=== PATIENT | female | born 1950 | race Caucasian/White ===

== ENCOUNTER 2022-01-12 10:41 | Outpatient (CLI) | payer OTHER, SELFPAY | END 2022-01-12 10:42 | disposition home or self-care (01) | PROVIDERS: PCP Family Medicine; Visit Provider Orthopaedic Surgery Sports Medicine | DX: Z01.818 Encounter for other preprocedural examination (principal) | CPT/HCPCS: 36415; 86850; 86900; 86901 ==

== ENCOUNTER 2022-01-14 11:49 | Day surgery (SDC) | payer OTHER, SELFPAY ==
[2022-01-14] VITALS (28 sets, daily range): BP systolic 119–156; BP diastolic 70–108; PULSE 48–71; RESP 11–18; TEMP 35.6–36.6; O2SAT 93–100; BMI 37.5
[2022-01-14] MEDS: MIDAZOLAM HCL 1 MG/ML inj IVP (11:50)
[2022-01-14] MEDS: fentaNYL 100 MCG/2 ML inj IVP (11:50)
[2022-01-14] MEDS: CELECOXIB 200 MG CAPSULE PO ×2 (12:14→20:52)
[2022-01-14] MEDS: ACETAMINOPHEN 500 MG TABLET 1000 MG PO ×2 (12:14→20:52)
[2022-01-14] MEDS: OXYCODONE (CR) 10 MG TAB.ER.12H PO (12:14)
[2022-01-14] MEDS: SODIUM CHLORIDE 0.9 % (FLUSH) 10 ML SYRINGE IVF (14:02)
[2022-01-14] MEDS: LACTATED RINGERS 1000 ML 1,000 ML 100 ML IV ×2 (14:02→15:56)
--- NOTE | 2022-01-14 14:37 | W.PM.NB ---
Nerve Block Nerve Block Time Seen by Provider: 14:37 Date Seen: 01/14/22 Type of block requested by surgeon for post-operative analgesia: KEVIN/LFCN Side: right Time out performed: Yes Verification of patient name: Yes Verification of date of : Yes Site marking: site marked Name of person performing procedure: Craig Continuous monitoring Was continuous monitoring of O2 sat, B/P, cardiac cath technician, recorded every 15 minutes?: Yes Procedure Checklist: sterile prep, needles and gloves Ultrasound guided. Images saved: Yes Medications given in 5ml increments after negative aspiration: Marcaine %: 0.5 mL: 30 Needle gauge: 20 Decadron (mg): 10 Precedex (mcg): 25 Patient tolerated procedure well: Yes Additional comments: Needle noted adjacent to nerve Block Charges Block Charge (with Pro Fee): Other Periph Nerve Block Use of Ultrasound Machine for Block: Yes- US Guidance/pain block
--- NOTE | 2022-01-14 14:45 | SUR.PREOP ---
TIME?OUT:?1430 PT/RN/MDA?VERIFICATION?OF?SURGICAL?SITE,?PROCEDURE,?AND?CONSENT OBTAINED?PRIOR?TO?INVASIVE?PROCEDURE. right hip
--- NOTE | 2022-01-14 14:53 | CRLHL7_ITS ---
For Patients: As a result of the Cures Act, medical imaging exams and procedure reports are released immediately into your electronic medical record. You may view this report before your referring provider. If you have questions, please contact your health care provider. Indication: Hip replacement surgery Technique: AP hip fluoroscopic image. Fluoroscopy time 47.2 seconds. Findings/Impression: Hardware from a right total hip arthroplasty is in satisfactory position. Dictated by Jair Martinez MD @ 01/15/2022 8:36:31 AM (Electronically Signed)
[2022-01-14] MEDS: CEFAZOLIN 2 GM INJ IVP (15:30)
--- NOTE | 2022-01-14 17:52 | P.ORPRC_ITS ---
Procedure Note Date of procedure: 01/14/22 Procedure: PREOPERATIVE DIAGNOSIS: 1. Right hip osteoarthritis, severe, primary POSTOPERATIVE DIAGNOSIS: 1. Right hip osteoarthritis, severe, primary PROCEDURE: 1. Right total hip arthroplasty-anterior approach 2. 53154 - intraoperative fluoroscopy up to 1 hour. SURGEON: Barrera Sellers MD. TACTICAL AIR DEFENSE CONTROLLER: Kwaku Blevins PA-C; ARTEM Kirkland - Of note, a skilled warehouse assistant was critical for this case to aid in patient positioning, tissue retraction, limb manipulation/positioning, and closure. ANESTHESIA: General endotracheal anesthetic EBL: 500 mL IMPLANTS: DePuy J&J uncemented total hip [place] cup size 48, hole eliminator, +0 neutral liner Corail stem, standard offset short neck, size 14 +5 mm ceramic 32mm head COMPLICATIONS: Proximal, posterior greater trochanteric intraoperative fracture fragment. Cerclage cables placed around the calcar to reinforce/support the femur. INDICATIONS: The patient is a pleasant 71-year-old female who has experienced severe right hip pain and difficulty bearing weight. Workup included x-rays which revealed severe osteoarthrosis in the hip. Given the deformity, the dysfunction, and the pain, as well as the failure of nonoperative management, recommendation was made for surgery. FINDINGS: Severe osteoarthrosis with full-thickness chondral loss femoral head and broadly to the acetabulum. Perimeter osteophytes around the femoral head/neck junction. Moderate effusion upon entering the joint. Significant synovitis. Intraoperatively, subtle posterior proximal greater trochanteric fracture was identified. It did not appear that the stem was unstable, but cerclage cables placed around the calcar to reinforce and support the bone. DESCRIPTION OF PROCEDURE: Following a thorough discussion of risks, benefits, and alternatives consent was obtained and the right hip was marked. The patient was brought to the operating room and placed supine on the operating table. Induction of anesthesia was undertaken. 2 g IV Ancef and 1 g tranexamic acid was administered within 1 hr of incision preoperatively. Proper time-out was performed identifying proper patient, site, procedure. The operative extremity was prepped and draped in the appropriate sterile fashion using ChloraPrep after the patient was positioned on the [place] table with head in neutral alignment and all bony prominences well padded. C-arm fluoroscopic imaging was utilized to confirm proper pelvis rotation and position, and to get true AP films of both the contralateral left, and the affected right hip. This is for comparison. A longitudinal incision was made starting approximately 1 cm distal to the ASIS, and 3-4 cm lateral. The incision was extended distally aiming toward the lateral border the patella. Sharp incision through skin and bovie cautery through the subcutaneous tissue allowed identification of the TFL fascia. This was sharply divided, and the fascia bluntly released from the muscle fibers as we dissected medial. Upon coming to the medial border, we were able to retract the TFL laterally, and penetrated the deeper fascia and identify the crossing circumflex vessels. These were ligated/cauterized. The rectus was elevated from the capsule, and retractors placed laterally and medially along the femoral neck to help with visualization of the capsule. We then performed an inverted T capsulotomy. The capsule was tagged for later repair. Retractors were placed inside the capsule. The femoral neck was visualized after releasing medially down to the lesser trochanter, along the saddle laterally, and up onto the acetabulum. The femoral neck cut was made in line with our preoperative templating. The head was removed in a single piece, and sized. We turned our attention to acetabular preparation. Initially, the labrum was resected from around the perimeter, the pulvinar was excised, allowing us to visualize the false wall. We started the reaming with a 43 mm reamer. This was medialized down to the true wall. We then enlarged our reamers sequentially up to one size less than the selected cup size. We trialed at the same size and found it to have an excellent fit. The selected cup was then opened, inserted, and impacted in line with the goal of 40? of abduction, and 20-25? of anteversion. This was confirmed on C-arm fluoroscopic imaging to be in the appropriate/goal position. Once the cup was placed we placed a hole eliminator and a liner consistent with preop planning. Attention was turned to the femoral preparation. The limb was extended, externally rotated, and adducted. The posteromedial capsule was released, as retractors were placed allowing excellent access to the proximal femur. Initially a box storage worker was followed by canal finder followed by various broaches. We broached sequentially up to the size noted above, found it to have excellent rotational control, and trialing various heads and necks, revealed that appropriate neck offset, and the above noted head size provided the greatest stability, and orthodox of length, and offset. C-arm fluoroscopic imaging confirmed position of the stem, as well as leg lengths, which were compared with the pre procedure all fluoroscopic images. Trial implants were removed, the real femoral stem inserted, as was the appropriate head. After reducing, the leg was placed through range of motion and stability was confirmed anterior, posterior, and lateral. Of note, during the calcar planing process, a portion of the posterior proximal greater trochanter fractured off. It was a separate fragment. It did not appear to compromise the integrity of the proximal femur or the stem stability. The trial stem was maintained and assessed and found to be stable. We reduced the hip and dislocated with trialing. We put in the real implants and again the implant felt stable. However, with the fracture fragment not able to be maintained (it had no soft tissue attachments), cerclage cables were utilized to help reinforce the proximal femur and support the calcar to ensure that there is no splitting of this that could not be appreciated grossly nor fluoroscopically. Thus, 2 separate cerclage super cables were placed 1 proximal and 1 distal to the greater trochanteric apex. Both went around the calcar just proximal to the lesser trochanter. Excellent security was achieved. Again the stem felt to be stable throughout. A 3 min Betadine soak was then performed, and thorough irrigation with normal saline followed. Closure of the capsule was performed with #1 PDS. Bleeding was confirmed to be controlled at this stage, and the TFL fascia was closed with #0 strata fix. Subcutaneous, and subcuticular closure was performed with 2-0 Vicryl and 4-0 Monocryl, respectively. Dressings were applied, and the patient was awoken from anesthesia and transferred the PACU in stable condition. A skilled warehouse assistant was critical for this case to aid in patient positioning, tissue retraction, acetabular and proximal femoral exposure, limb manipulation/positioning, dislocation/relocation, patient safety, and closure. PLAN: 1. Weight bear as tolerated operative extremity. 2. 23 hr perioperative antibiotics. 3. Ice. 4. PT/OT consults for ambulation assistance/mobility education. 5. Social work consult for discharge planning. 6. DVT prophylaxis with at SCDs, William Hose, and Xarelto x5 days followed by aspirin for a total of 1 month..
--- NOTE | 2022-01-14 17:57 | CRLHL7_ITS ---
For Patients: As a result of the Cures Act, medical imaging exams and procedure reports are released immediately into your electronic medical record. You may view this report before your referring provider. If you have questions, please contact your health care provider. Indication: POST OP VICKY Technique: AP pelvis and lateral view right hip Findings/Impression: Hardware from a right total hip arthroplasty is in satisfactory position. Bone alignment is normal. No sign of acute fracture. Postop changes are within normal limits. Dictated by Jair Martinez MD @ 01/15/2022 8:37:14 AM (Electronically Signed)
[2022-01-14] MEDS: fentaNYL 100 MCG/2 ML inj 50 MCG IVP ×2 (18:56→19:36)
--- NOTE | 2022-01-14 18:57 | W.ANESCHARGE ---
Anesthesia Charges Start Date/Time Anesthesia Start Date: 01/14/22 Anesthesia Start Time: 15:22 Stop Date/Time Anesthesia Stop Date: 01/14/22 Anesthesia Stop Time: 18:51 Summary Emergency: No
[2022-01-14] MEDS: HYDROmorphone 0.5 mg/0.5 ml inj IVP ×2 (19:13→20:53)
[2022-01-14] MEDS: LACTATED RINGERS 1000 ML 1,000 ML 75 ML IV (19:40)
[2022-01-14] MEDS: BENZOCAINE/MENTHOL 1 EACH LOZENGE MUCOUS MEM (20:43)
[2022-01-14] MEDS: SENNOSIDES 1 TAB TABLET 2 TAB PO (20:51)
--- NOTE | 2022-01-14 21:35 | P.IMCN_ITS ---
Date of Consult Patient: [facility] Patient Consult date: 01/14/22 Requesting Physician: Orthopedics (Michael) Primary Care Provider: Jair Long MD Consult Narrative Reason for consult: hypertension, hyperlipidemia Narrative: Monika Faustin is a 71 year old female who underwent elective right total hip arthroplasty today by Dr. Rodriguez. She is doing well post operatively. She felt a bit chilled, but is better now with JACOB hugger and feels comfortable and relaxed. Review of Systems Status of ROS: Reports: 6 or more systems reviewed and unremarkable except as noted in History and below [facility] Medical History (Updated 01/14/22 @ 22:27 by Ania Magana MD) History of thyroid nodule Hyperlipidemia Hypertension Hypothyroidism Obesity (BMI 30-39.9) Primary osteoarthritis of right hip (~2014) Surgical History (Updated 01/14/22 @ 21:43 by Ania Magana MD) History of D&C (2016) History of radioactive iodine thyroid ablation (2016) History of tonsillectomy (1963) History of tubal ligation (1990) S/P total right hip arthroplasty Family History (Updated 01/14/22 @ 21:53 by Ania Magana MD) Father Stroke Diabetes Breast cancer High blood pressure Mother Esophageal cancer Maternal Grandfather Coronary artery disease Social History Narrative: . 4 children. 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 Social EtOH. Full Code. Smoking Status: Never smoker Do you use any of these nicotine containing products: None Second hand tobacco smoke exposure: No How often do you have a drink containing alcohol: monthly or less Alcohol type: wine How many standard drinks containing alcohol do you have on a typical day: 1 or 2 How often do you have six or more drinks on one occasion: Never AUDIT-C Alcohol total score: 1 Non-prescribed substance use: denies use Caffeine: Yes (coffee, 2-3 cups/day) Are you now , , , , never or living with a partner: Social isolation score (0-1 are the most socially isolated patients): 1 Are you using contraception or practicing any form of control: No Meds Home Medications and Allergies Home Medications Medication Instructions Recorded Confirmed Type levothyroxine 88 mcg tablet 88 mcg PO DAILY 12/17/21 01/14/22 History losartan 100 1 tab PO DAILY 12/17/21 01/14/22 History mg-hydrochlorothiazide 12.5 mg tablet metoprolol succinate 50 mg 50 mg PO HS 12/31/21 01/14/22 History tablet,extended release 24 hr Home Medication Comments: amlodipine 5mg po daily. Allergies Allergy/AdvReac Type Severity Reaction Status Date / Time No Known Drug Allergies Allergy Verified 01/14/22 12:01 Exam Narrative: Exam Narrative: General: No acute distress. Awake alert oriented x3. Very pleasant. HEENT: Normocephalic atraumatic, pupils equally round. Oropharynx clear. Mucous membranes are moist. No cervical lymphadenopathy or thyromegaly. No JVD. Cardiovascular: Regular rate and rhythm. No murmurs, gallops, or rubs. Chest: No increased work of breathing. Clear to auscultation bilaterally. No crackles or wheezes. Abdomen: Bowel sounds present. Soft, nondistended, nontender. No hepatosplenomegaly or masses. Extremities: Right hip bandage is clean, dry, and intact. No edema, no c yanosis or clubbing. Skin: No jaundice, no pallor, no rashes. Const: Vital Signs, click to edit/add: Vital Signs - 24 hr 01/14/22 12:09 01/14/22 14:30 01/14/22 14:35 Temperature 97.9 F Pulse Rate 71 56 L 56 L Respiratory Rate 18 18 18 Blood Pressure 156/89 H 142/83 H 127/77 Pulse Oximetry 98 98 98 Oxygen Delivery Me thod Room Air Room Air Room Air Oxygen Flow Rate 01/14/22 14:40 01/14/22 14:45 01/14/22 14:50 Temperature Pulse Rate 52 L 54 L 52 L Respiratory Rate 18 18 18 Blood Pressure 122/80 122/80 128/76 Pulse Oximetry 98 100 100 Oxygen Delivery Me thod Nasal Cannula Nasal Cannula Nasal Cannula Oxygen Flow Rate 3 3 3 01/14/22 14:55 01/14/22 15:00 01/14/22 15:05 Temperature 97.9 F 97.9 F Pulse Rate 52 L 51 L 52 L Respiratory Rate 18 18 18 Blood Pressure 122/75 130/74 120/78 Pulse Oximetry 99 99 99 Oxygen Delivery Me thod Nasal Cannula Nasal Cannula Nasal Cannula Oxygen Flow Rate 3 3 3 01/14/22 15:11 01/14/22 18:55 01/14/22 19:00 Temperature 96.9 F L Pulse Rate 55 L 56 L 48 L Respiratory Rate 14 12 Blood Pressure 127/82 141/80 H 119/70 Pulse Oximetry 98 93 97 Oxygen Delivery Me thod Nasal Cannula Oxygen Flow Rate 3 01/14/22 19:05 01/14/22 19:10 01/14/22 19:15 Temperature Pulse Rate 54 L 53 L 53 L Respiratory Rate 16 12 11 L Blood Pressure 120/78 128/83 134/78 Pulse Oximetry 100 100 98 Oxygen Delivery Me thod Oxygen Flow Rate 01/14/22 19:20 01/14/22 19:25 01/14/22 19:30 Temperature 96.7 F L Pulse Rate 51 L 53 L 52 L Respiratory Rate 12 12 11 L Blood Pressure 136/77 140/89 H 121/108 H Pulse Oximetry 98 98 97 Oxygen Delivery Me thod Oxygen Flow Rate 01/14/22 19:35 01/14/22 19:40 Temperature 97.0 F L Pulse Rate 51 L 50 L Respiratory Rate 11 L 11 L Blood Pressure 145/82 H 138/76 Pulse Oximetry 97 98 Oxygen Delivery Me thod Oxygen Flow Rate Assessment and Plan Assessment and plan (1) S/P total right hip arthroplasty: Status: Acute Assessment and Plan: Cares per ortho. Pain well controlled. VTE prophylaxis with rivaroxaban for 5 d ays then aspirin 81 mg twice a day for 5 and half weeks. (2) Primary osteoarthritis of right hip: Problem comment: Had R greater troch bursa inj 04/19/20. See scanned [facility] note. Status: Chronic (3) Hypertension: Status: Chronic Assessment and Plan: I will hold her morning antihypertensives since blood pressure is often low postop day 1. If she is hypertensive tomorrow morning, these can be restarted at that time. I will continue metoprolol to start tomorrow night. (4) Hyperlipidemia: Problem comment: Diet controlled Status: Chronic (5) Hypothyroidism: Status: Chronic Assessment and Plan: Continue levothyroxine at home dosing. (6) Obesity (BMI 30-39.9): Problem comment: BMI 37.3 Status: Acute
[2022-01-14] MEDS: OXYCODONE 5 MG TABLET PO (22:21)
[2022-01-14] MEDS: CEFAZOLIN 2 GM in 0.9 % SODIUM CHLORIDE Mini-bag 100 ML IVPB (23:24)
[2022-01-14] MEDS: LORazepam 0.5 MG TABLET PO (23:33)
[2022-01-15] VITALS: BP 124/79; PULSE 55; RESP 16; TEMP 36.4; O2SAT 91
[2022-01-15] MEDS: OXYCODONE 5 MG TABLET PO ×5 (00:54→15:37)
[2022-01-15 01:00] VITALS: BP 137/88; PULSE 58; RESP 16; TEMP 36.4; O2SAT 88
[2022-01-15] MEDS: ACETAMINOPHEN 500 MG TABLET 1000 MG PO ×3 (01:48→14:16)
--- NOTE | 2022-01-15 06:33 | PC.NURSE ---
pt to floor at 1940. A x 1 with gb and walker. No c/o nausea. c/o pain in right hip, 6-02/16, see eMar for meds given. Pt requiring 1L O2 via NC when asleep to maintain sats >88%, when dozing off her O2 sats dropped to 87%. HR 50s-60s. BP 130s/80s. LS clear. Bowels active. Dressing to surgical site CDI, active ice on.
[2022-01-15] MEDS: LEVOTHYROXINE 88 MCG TABLET PO (06:41)
[2022-01-15 07:00] VITALS: BP 114/71; PULSE 63; RESP 18; TEMP 36.8; O2SAT 96
[2022-01-15 07:22] LABS: Hematocrit 34.9 % (33.0-51.0); Hemoglobin* 11.9 gm/dL (12.0-16.0); Immature Granulocytes Abs Auto 0.02 K/uL (0.00-0.30); Lymphocytes Percent Auto 5.2 % (20-44); Mean Corpuscular HGB Conc 34 gm/dL (32-36); Mean Corpuscular Hemoglobin 30 pg (26-34); Mean Corpuscular Volume 89 fL (80-100); Monocytes Percent Auto 4.4 % (0.0-11.0); Neutrophils Percent Auto 90.2 % (42.0-72.0); Platelet Count* 207 K/uL (140-440); RDW Coefficient of Variation % 13.4 % (11.5-15.5); Red Blood Count 3.93 m/uL (4.00-5.20); White Blood Count* 12.17 K/uL (4.50-11.00)
[2022-01-15 07:23] LABS: Slide Review Reflex No
[2022-01-15 07:25] LABS: Sodium* 130 mmol/L (135-149)
[2022-01-15 07:28] LABS: Blood Urea Nitrogen* 31 mg/dL (7-30); Creatinine* 1.2 mg/dL (0.5-1.5); Est. Creatinine Clearance* 36.09; Estimated Glomerular Filt Rate 49 ml/min
[2022-01-15] MEDS: CEFAZOLIN 2 GM in 0.9 % SODIUM CHLORIDE Mini-bag 100 ML IVPB ×2 (08:01→15:33)
[2022-01-15] MEDS: CELECOXIB 200 MG CAPSULE PO (08:54)
[2022-01-15] MEDS: SENNOSIDES 1 TAB TABLET 2 TAB PO (08:54)
[2022-01-15] MEDS: RIVAROXABAN 10 MG TABLET PO (08:55)
--- NOTE | 2022-01-15 10:22 | P.DS_ITS ---
DS: Providers Provider Date Seen: 01/15/22 Primary care physician: Jair Long MD Consults: 01/14/22 20:36 Consult to Occupational Therapy [CONS] Routine Comment: Reason(s) for OT Consult:: ADLs Prior to Discharge Any Restrictions?:: No Restrictions Comment: Consult to Physical Therapy [CONS] Routine Comment: Ambulate in the [place] today Reason(s) for PT Consult:: Evaluate and Treat Any Restrictions?:: No Restrictions Comment: Nursing Activity Consult to Physician [CONS] Routine Comment: Consulting Provider: Hospitalists Has provider been notified: No Consult to Telecommunications Operator [CONS] Routine Comment: Reason for Consult:: Discharge Planning Needs Attending Physician on discharge: Barrera Sellers MD Date of Discharge: 01/15/22 DS: Diagnosis Discharge Diagnosis (1) S/P total right hip arthroplasty: Status: Acute Problem details: right total hip arthroplasty-anterior approach (DOS 01/14/2022) (2) Primary osteoarthritis of right hip: Status: Resolved Problem details: Had R greater troch bursa inj 04/19/20. See scanned [facility] note. (3) Hypertension: Status: Chronic DS: Summary Hospital Course Hospital Course: 71-year-old female admitted for right total hip arthroplasty. Procedures performed by Dr. Sellers. Operation complicated by a fracture of the posterior greater trochanter managed with cerclage wires. Postoperatively she has done well. There have been no other postoperative complications. She reports feeling well today. Pain is well managed. She has been able to ambulate. The patient has a history of right hip osteoarthritis, primary, severe. After appropriate preoperative evaluation, the patient underwent right total hip arthroplasty. Postoperatively, the patient was given anticoagulation for deep vein thrombosis prophylaxis. The patient was progressed to Physical Therapy and was felt ready for discharge. Status at Discharge Functional status at discharge: uses cane/walker Overall status at discharge: patient is back to baseline Time Spent with Patient Time attestation: Total time spent providing and/or coordinating discharge services: Time spent: Less than 30 minutes Exam Narrative: Exam Narrative: She is alert and appears in no distress. Breathing is unlabored. Hip incision is clean and dry without drainage on the dressing. No bruising or redness. Distally she has intact pulses and sensation good strength in her feet and ankles bilaterally. No edema Const: Vital Signs, click to edit/add: Vital Signs - 24 hr 01/14/22 12:09 01/14/22 14:30 01/14/22 14:35 Temperature 97.9 F Pulse Rate 71 56 L 56 L Pulse Rate [Pulse Oximeter] Respiratory Rate 18 18 18 Blood Pressure 156/89 H 142/83 H 127/77 Blood Pressure [Le ft Radial Artery] Blood Pressure [Ri ght Arm] Pulse Oximetry 98 98 98 Oxygen Delivery Me thod Room Air Room Air Room Air Oxygen Flow Rate 01/14/22 14:40 01/14/22 14:45 01/14/22 14:50 Temperature Pulse Rate 52 L 54 L 52 L Pulse Rate [Pulse Oximeter] Respiratory Rate 18 18 18 Blood Pressure 122/80 122/80 128/76 Blood Pressure [Le ft Radial Artery] Blood Pressure [Ri ght Arm] Pulse Oximetry 98 100 100 Oxygen Delivery Me thod Nasal Cannula Nasal Cannula Nasal Cannula Oxygen Flow Rate 3 3 3 01/14/22 14:55 01/14/22 15:00 01/14/22 15:05 Temperature 97.9 F 97.9 F Pulse Rate 52 L 51 L 52 L Pulse Rate [Pulse Oximeter] Respiratory Rate 18 18 18 Blood Pressure 122/75 130/74 120/78 Blood Pressure [Le ft Radial Artery] Blood Pressure [Ri ght Arm] Pulse Oximetry 99 99 99 Oxygen Delivery Me thod Nasal Cannula Nasal Cannula Nasal Cannula Oxygen Flow Rate 3 3 3 01/14/22 15:11 01/14/22 18:55 01/14/22 19:00 Temperature 96.9 F L Pulse Rate 55 L 56 L 48 L Pulse Rate [Pulse Oximeter] Respiratory Rate 14 12 Blood Pressure 127/82 141/80 H 119/70 Blood Pressure [Le ft Radial Artery] Blood Pressure [Ri ght Arm] Pulse Oximetry 98 93 97 Oxygen Delivery Me thod Nasal Cannula Oxygen Flow Rate 3 01/14/22 19:05 01/14/22 19:10 01/14/22 19:15 Temperature Pulse Rate 54 L 53 L 53 L Pulse Rate [Pulse Oximeter] Respiratory Rate 16 12 11 L Blood Pressure 120/78 128/83 134/78 Blood Pressure [Le ft Radial Artery] Blood Pressure [Ri ght Arm] Pulse Oximetry 100 100 98 Oxygen Delivery Me thod Oxygen Flow Rate 01/14/22 19:20 01/14/22 19:25 01/14/22 19:30 Temperature 96.7 F L Pulse Rate 51 L 53 L 52 L Pulse Rate [Pulse Oximeter] Respiratory Rate 12 12 11 L Blood Pressure 136/77 140/89 H 121/108 H Blood Pressure [Le ft Radial Artery] Blood Pressure [Ri ght Arm] Pulse Oximetry 98 98 97 Oxygen Delivery Me thod Oxygen Flow Rate 01/14/22 19:35 01/14/22 19:40 01/14/22 19:40 Temperature 97.0 F L 96.1 F L Pulse Rate 51 L 50 L 53 L Pulse Rate [Pulse Oximeter] Respiratory Rate 11 L 11 L 12 Blood Pressure 145/82 H 138/76 Blood Pressure [Le ft Radial Artery] 148/86 H Blood Pressure [Ri ght Arm] Pulse Oximetry 97 98 Oxygen Delivery Me thod Room Air Oxygen Flow Rate 01/14/22 20:00 01/14/22 20:15 01/14/22 20:30 Temperature 96.3 F L 96.7 F L Pulse Rate Pulse Rate [Pulse Oximeter] Respiratory Rate 12 12 Blood Pressure Blood Pressure [Le ft Radial Artery] 152/83 H 150/89 H 153/79 H Blood Pressure [Ri ght Arm] Pulse Oximetry 98 98 96 Oxygen Delivery Me thod Room Air Room Air Room Air Oxygen Flow Rate 01/14/22 20:45 01/14/22 21:00 01/14/22 21:30 Temperature 96.7 F L 97 F L 97.4 F L Pulse Rate Pulse Rate [Pulse Oximeter] Respiratory Rate 14 14 12 Blood Pressure Blood Pressure [Le ft Radial Artery] 150/91 H 146/79 H 132/77 Blood Pressure [Ri ght Arm] Pulse Oximetry 96 96 96 Oxygen Delivery Me thod Room Air Room Air Room Air Oxygen Flow Rate 01/14/22 22:00 01/14/22 23:00 01/15/22 00:00 Temperature 97.4 F L 97.4 F L 97.5 F L Pulse Rate Pulse Rate [Pulse Oximeter] 60 58 L 55 L Respiratory Rate 14 16 16 Blood Pressure Blood Pressure [Le ft Radial Artery] 140/90 H 134/80 124/79 Blood Pressure [Ri ght Arm] Pulse Oximetry 99 99 91 Oxygen Delivery Me thod Room Air Room Air Room Air Oxygen Flow Rate 01/15/22 01:00 01/15/22 07:00 01/15/22 07:00 Temperature 97.5 F L 98.2 F Pulse Rate Pulse Rate [Pulse Oximeter] 58 L 63 Respiratory Rate 16 18 18 Blood Pressure Blood Pressure [Le ft Radial Artery] 137/88 Blood Pressure [Ri ght Arm] 114/71 Pulse Oximetry 88 96 Oxygen Delivery Me thod Room Air Room Air Oxygen Flow Rate Documenting provider has reviewed patient's vital signs: yes DS: Data Data Completed and Pending Labs on day of discharge: Labs from last 24 hours 01/15/22 01/15/22 06:37 06:37 WBC 12.17 H RBC 3.93 L Hgb 11.9 L Hct 34.9 MCV 89 MCH 30 MCHC 34 RDW Coeff of Tracy 13.4 Plt Count 207 Neut % (Auto) 90.2 H Lymph % (Auto) 5.2 L [place] % (Auto) 4.4 Eos % (Auto) 0.0 Baso % (Auto) 0.0 Neut # (Auto) 11.00 H Lymph # (Auto) 0.60 L [place] # (Auto) 0.50 Eos # (Auto) 0.00 Baso # (Auto) 0.00 Abs Immat Gran (auto) 0.02 Sodium 130 L Potassium 5.0 BUN 31 H Creatinine 1.2 Estimated Creat Clear 36.09 Estimated GFR 49 Discharge Plan Discharge Disposition: Home, Self-Care Discharging Surgeon: Barrera Sellers Follow-Up Appointment: Pt to follow up with PA in 1 week as scheduled and surgeon in 6 weeks Prescriptions: Continued levothyroxine 88 mcg tablet 88 mcg PO DAILY losartan-hydrochlorothiazide 100-12.5 mg tablet 1 tab PO DAILY amlodipine 5 mg tablet 5 mg PO QDAY Qty: 30 2RF Discontinued celecoxib 200 mg capsule 200 mg PO BID oxycodone 5 mg tablet 5 mg PO Q6H PRN (Reason: pain) Qty: 28 0RF Activity Level: Activity as Tolerated, Weight Bearing as Tolerated, Use Cane and Use Walker Activity Detail: Wound: ?Do not remove original dressing; we will remove this at first postop visit in 1 week. Only remove dressing if integrity is in question. ?No immersing wound in water; showering okay; light scrub with your hand and body soap, rinse, dab dry ?Sutures are under the skin, will dissolve; allow surgical glue to come off naturally; do not scrub the wound or apply ointments/lotions ?Call our office with any redness that streaks, excessive drainage from the wound, or wound gapping. Ice/Elevate: ?Ice as needed for swelling and discomfort (cryocuff or ice pack); elevate frequently above the heart CAITIE socks: ?Wear for 1 month, remove for 1 hour 3 times per day ?These are frustrating to take on/off, but are important for blood clot prevention for 1 month after surgery Blood Clot Prevention (DVT): ?Medication: Rivaroxaban, then transition to aspirin Driving: ?Do not drive while taking narcotic pain medication ?Anticipate 4-6 weeks no driving if operative leg is driving leg Dental: ?No elective dental work for 6 months post-op. If there is an urgent/emergent dental need, contact our office for an antibiotic prescription. Smoking/Alcohol: ?Do not smoke; do no drink alcohol especially when taking postoperative oral narcotic medication Seek Care from you Primary Care Provider if you experience the following issues in the postoperative phase and beyond: ?Bacterial infections such as: pneumonia, bacterial skin infection (cellulitis), UTI, high fever, chills unrelated to the operative body part - call your primary care physician urgently for treatment in hopes to protect your health and the metal implant. Referrals: ?PT, OT per patient preference - evaluate treat total right hip arthroplasty protocol (the training, ROM, ADLs, knee-high Caitie socks) Follow up: ?Ortho surgeon follow-up in 6 weeks; repeat radiographs AP pelvis, cross-table lateral right hip ?PA-C visit in 1 week *If there are any acute concerns regarding your surgery, please call our orthopedic clinic ([phone]) Discharge Diet: Regular Patient Instructions: Acetaminophen (By mouth), Aspirin (By mouth) (Otis Extra Strength, Otis Aspirin Children's,..., Oxycodone, Rapid Release (By mouth) ( ETH-Oxydose, Oxy IR,..., Rivaroxaban (By mouth) (Xarelto, Xarelto Starter Pack), Senna (By mouth) (Sen, Senna-lax), Anterior Hip Replacement (DC) Forms: Work/Release Restrictions Follow-up: Jair Long MD [Primary Care Provider] - Kwaku Blevins PA-C [Physician Hogshead Wrecker] - 01/24/22 8:30 am (Schedule [address] Sellers at this visit with Kwaku.) Discharge Orders: Discharge Order (Routine); Ordered 01/15/22 Ordered By: Santa Guthrie
[2022-01-15 11:00] VITALS: BP 113/66; PULSE 65; RESP 16; TEMP 36.8; O2SAT 96
--- NOTE | 2022-01-15 11:01 | PC.SOCIAL ---
Met with pt. and spouse to discuss discharge plans. Pt. plans to discharge home with spouse support and has everything she needs on one level except 3 steps to get into the home. Pt. is aware she can contact social insurance specialist if she needs any additional resources for discharge.
[2022-01-15 15:00] VITALS: BP 131/73; PULSE 67; RESP 16; TEMP 36.6; O2SAT 97
--- NOTE | 2022-01-15 17:53 | PC.NURSE ---
End of Shift: Patient pleasant and cooperative. Patient vitally stable, lungs clear, BS WNL(passing gas), IV's removed, catheter intact. Patient rating pain at most 8/10. Scheduled tylenol given x2 and 10 mg of oxy given x3. Patient ambulating 1 assist, walker, gb. Patient did report feeling lowsy after her therapies, patient reported it is due to the pain, no pain medications. Patient tolerating regular diet and urinating. Patient signed belongings sheet and discharge form. Patient had no further questions regarding discharge information. Patient left the floor at 1742 by wheelchair, accompanied by her who carried her belongings.
--- NOTE | 2022-01-15 19:31 | PM.ORPN ---
Subjective Subjective Date Seen: 01/15/22 Principal diagnosis: Status postop day 1 right total hip arthroplasty - anterior approach Interval history: Patient reports doing well. No acute events over night. Pain managed with scheduled /PRN medications and ice. DVT prophylaxis rivaroxaban, bilateral knee high William stockings, and SCDs. Denies fevers, chills, aches, N/V, CP, SOB/DUBOSE, tachycardia, or lightheadedness. She arrived late to the floor yesterday it will not received her last dose of IV antibiotics until this afternoon. Ortho Exam Narrative Exam Narrative: -Patient appears comfortable in bed; no apparent acute distress -Alert and oriented times 3 -Operative hip swollen; soft tissues supple; no obvious erythema. Ecchymosis minimal. Warmth appropriate -Surgical dressing clean, dry, intact; no obvious drainage, no erythematous streaking peripheral to the bandage -Bilateral calves soft and supple; no significant swelling, edema, tenderness, erythema, discoloration, warmth, or palpable cords -2+ DP/PT pulses, intact dermatomes and myotomes distally (5/5 strength). Mild numbness about the lateral femoral cutaneous nerve distribution. Const Vital Signs, click to edit/add: Vital Signs - 24 hr 01/14/22 19:35 01/14/22 19:40 01/14/22 19:40 Temperature 97.0 F L 96.1 F L Pulse Rate 51 L 50 L 53 L Pulse Rate [Pulse Oximeter] Respiratory Rate 11 L 11 L 12 Blood Pressure 145/82 H 138/76 Blood Pressure [Left Radial Artery] 148/86 H Blood Pressure [Right Arm] Pulse Oximetry 97 98 Oxygen Delivery Method Room Air 01/14/22 20:00 01/14/22 20:15 01/14/22 20:30 Temperature 96.3 F L 96.7 F L Pulse Rate Pulse Rate [Pulse Oximeter] Respiratory Rate 12 12 Blood Pressure Blood Pressure [Left Radial Artery] 152/83 H 150/89 H 153/79 H Blood Pressure [Right Arm] Pulse Oximetry 98 98 96 Oxygen Delivery Method Room Air Room Air Room Air 01/14/22 20:45 01/14/22 21:00 01/14/22 21:30 Temperature 96.7 F L 97 F L 97.4 F L Pulse Rate Pulse Rate [Pulse Oximeter] Respiratory Rate 14 14 12 Blood Pressure Blood Pressure [Left Radial Artery] 150/91 H 146/79 H 132/77 Blood Pressure [Right Arm] Pulse Oximetry 96 96 96 Oxygen Delivery Method Room Air Room Air Room Air 01/14/22 22:00 01/14/22 23:00 01/15/22 00:00 Temperature 97.4 F L 97.4 F L 97.5 F L Pulse Rate Pulse Rate [Pulse Oximeter] 60 58 L 55 L Respiratory Rate 14 16 16 Blood Pressure Blood Pressure [Left Radial Artery] 140/90 H 134/80 124/79 Blood Pressure [Right Arm] Pulse Oximetry 99 99 91 Oxygen Delivery Method Room Air Room Air Room Air 01/15/22 01:00 01/15/22 07:00 01/15/22 07:00 Temperature 97.5 F L 98.2 F Pulse Rate Pulse Rate [Pulse Oximeter] 58 L 63 Respiratory Rate 16 18 18 Blood Pressure Blood Pressure [Left Radial Artery] 137/88 Blood Pressure [Right Arm] 114/71 Pulse Oximetry 88 96 Oxygen Delivery Method Room Air Room Air 01/15/22 11:00 01/15/22 15:00 01/15/22 15:00 Temperature 98.3 F 98 F Pulse Rate Pulse Rate [Pulse Oximeter] 65 67 67 Respiratory Rate 16 16 16 Blood Pressure Blood Pressure [Left Radial Artery] Blood Pressure [Right Arm] 113/66 131/73 Pulse Oximetry 96 97 Oxygen Delivery Method Room Air Room Air Assessment and Plan Assessment and plan (1) S/P total right hip arthroplasty: Problem details: POD 1 right total hip arthroplasty - anterior approach Status: Acute (2) Primary osteoarthritis of right hip: Problem details: Had R greater troch bursa inj 04/19/20. See scanned [facility] note. Status: Chronic (3) Hypertension: Status: Chronic Plan - Complete 23 hour perioperative antibiotics. - PT/OT consult for education and assistance. - Social work consult for discharge planning - Prescribed analgesics as needed - DVT prophylaxis: Rivaroxaban, bilateral knee high William Hose stockings and SCDs - Anticipation is for discharge to home with family today 01/15/2022 if the patient remains medically stable, pain is controlled, and they are safe with mobilization. They will discharge later this afternoon in order to complete postoperative IV antibiotics.
--- NOTE | 2022-01-15 19:33 | PM.DS1 ---
DS: Providers Provider Date Seen: 01/15/22 Date of admission: Med/surg recovery 01/14/2022 Primary care physician: Jair Long MD Consults: 01/14/22 20:36 Consult to Occupational Therapy [CONS] Routine Comment: Reason(s) for OT Consult:: ADLs Prior to Discharge Any Restrictions?:: No Restrictions Comment: Consult to Physical Therapy [CONS] Routine Comment: Ambulate in the [place] today Reason(s) for PT Consult:: Evaluate and Treat Any Restrictions?:: No Restrictions Comment: Nursing Activity Consult to Physician [CONS] Routine Comment: Consulting Provider: Hospitalists Has provider been notified: No Consult to Condenser Cleaner [CONS] Routine Comment: Reason for Consult:: Discharge Planning Needs Attending Physician on discharge: Barrera Sellers MD Date of Discharge: 01/15/22 DS: Diagnosis Discharge Diagnosis (1) S/P total right hip arthroplasty: Status: Acute Problem details: POD 1 right total hip arthroplasty - anterior approach DS: Summary Hospital Course Hospital Course: 71-year-old female admitted for right total hip arthroplasty. Procedures performed by Dr. Sellers. Operation complicated by a fracture of the posterior greater trochanter managed with cerclage wires. Postoperatively she has done well. There have been no other postoperative complications. She reports feeling well today. Pain is well managed. She has been able to ambulate. The patient has a history of right hip osteoarthritis, primary, severe. After appropriate preoperative evaluation, the patient underwent right total hip arthroplasty. Postoperatively, the patient was given anticoagulation for deep vein thrombosis prophylaxis. The patient was progressed to Physical Therapy and was felt ready for discharge. Time Spent with Patient Time attestation: Total time spent providing and/or coordinating discharge services: Exam Const: Vital Signs, click to edit/add: Vital Signs - 24 hr 01/14/22 19:35 01/14/22 19:40 01/14/22 19:40 Temperature 97.0 F L 96.1 F L Pulse Rate 51 L 50 L 53 L Pulse Rate [Pulse Oximeter] Respiratory Rate 11 L 11 L 12 Blood Pressure 145/82 H 138/76 Blood Pressure [Le ft Radial Artery] 148/86 H Blood Pressure [Ri ght Arm] Pulse Oximetry 97 98 Oxygen Delivery Me thod Room Air 01/14/22 20:00 01/14/22 20:15 01/14/22 20:30 Temperature 96.3 F L 96.7 F L Pulse Rate Pulse Rate [Pulse Oximeter] Respiratory Rate 12 12 Blood Pressure Blood Pressure [Le ft Radial Artery] 152/83 H 150/89 H 153/79 H Blood Pressure [Ri ght Arm] Pulse Oximetry 98 98 96 Oxygen Delivery Me thod Room Air Room Air Room Air 01/14/22 20:45 01/14/22 21:00 01/14/22 21:30 Temperature 96.7 F L 97 F L 97.4 F L Pulse Rate Pulse Rate [Pulse Oximeter] Respiratory Rate 14 14 12 Blood Pressure Blood Pressure [Le ft Radial Artery] 150/91 H 146/79 H 132/77 Blood Pressure [Ri ght Arm] Pulse Oximetry 96 96 96 Oxygen Delivery Me thod Room Air Room Air Room Air 01/14/22 22:00 01/14/22 23:00 01/15/22 00:00 Temperature 97.4 F L 97.4 F L 97.5 F L Pulse Rate Pulse Rate [Pulse Oximeter] 60 58 L 55 L Respiratory Rate 14 16 16 Blood Pressure Blood Pressure [Le ft Radial Artery] 140/90 H 134/80 124/79 Blood Pressure [Ri ght Arm] Pulse Oximetry 99 99 91 Oxygen Delivery Me thod Room Air Room Air Room Air 01/15/22 01:00 01/15/22 07:00 01/15/22 07:00 Temperature 97.5 F L 98.2 F Pulse Rate Pulse Rate [Pulse Oximeter] 58 L 63 Respiratory Rate 16 18 18 Blood Pressure Blood Pressure [Le ft Radial Artery] 137/88 Blood Pressure [Ri ght Arm] 114/71 Pulse Oximetry 88 96 Oxygen Delivery Me thod Room Air Room Air 01/15/22 11:00 01/15/22 15:00 01/15/22 15:00 Temperature 98.3 F 98 F Pulse Rate Pulse Rate [Pulse Oximeter] 65 67 67 Respiratory Rate 16 16 16 Blood Pressure Blood Pressure [Le ft Radial Artery] Blood Pressure [Ri ght Arm] 113/66 131/73 Pulse Oximetry 96 97 Oxygen Delivery Me thod Room Air Room Air DS: Data Data Completed and Pending Labs on day of discharge: Labs from last 24 hours 01/15/22 01/15/22 06:37 06:37 WBC 12.17 H RBC 3.93 L Hgb 11.9 L Hct 34.9 MCV 89 MCH 30 MCHC 34 RDW Coeff of [place] 13.4 Plt Count 207 Neut % (Auto) 90.2 H Lymph % (Auto) 5.2 L [place] % (Auto) 4.4 Eos % (Auto) 0.0 Baso % (Auto) 0.0 Neut # (Auto) 11.00 H Lymph # (Auto) 0.60 L [place] # (Auto) 0.50 Eos # (Auto) 0.00 Baso # (Auto) 0.00 Abs Immat Gran (auto) 0.02 Sodium 130 L Potassium 5.0 BUN 31 H Creatinine 1.2 Estimated Creat Clear 36.09 Estimated GFR 49 Discharge Plan Discharge Disposition: Home, Self-Care Discharging Surgeon: Barrera Sellers Follow-Up Appointment: Pt to follow up with PA in 1 week as scheduled and surgeon in 6 weeks Prescriptions: New aspirin 81 mg tablet,delayed release (DR/EC) 81 mg PO BID Qty: 50 0RF Rx Instructions: Medication to help prevent blood clots postoperatively; take TWICE daily. acetaminophen 500 mg capsule 500 - 1,000 mg PO Q6H MDD 4000mg PRNQty: 100 0RF oxycodone 5 mg tablet 2.5 - 5 mg PO Q4-6H MDD 6 PRN (Reason: pain) Qty: 42 0RF Rx Instructions: Take as needed for postop pain: 2.5mg mild pain, 5mg moderate-severe pain; wean as tolerated. sennosides-docusate sodium [Senna-S] 8.6-50 mg tablet 1 - 2 tab-cap PO BID PRN (Reason: constipation) Qty: 60 0RF Rx Instructions: Hold medication if experiencing loose stools. rivaroxaban 10 mg tablet 10 mg PO DAILY Qty: 4 0RF Rx Instructions: Medication for deep vein clot prevention post surgery. Complete this medication before starting Aspirin. Continued levothyroxine 88 mcg tablet 88 mcg PO DAILY losartan-hydrochlorothiazide 100-12.5 mg tablet 1 tab PO DAILY metoprolol succinate 50 mg tablet extended release 24 hr 50 mg PO HS amlodipine 5 mg tablet 5 mg PO QDAY Qty: 30 2RF Discontinued celecoxib 200 mg capsule 200 mg PO BID oxycodone 5 mg tablet 5 mg PO Q6H PRN (Reason: pain) Qty: 28 0RF Activity Level: Activity as Tolerated, Weight Bearing as Tolerated, Use Cane and Use Walker Activity Detail: Wound: ?Do not remove original dressing; we will remove this at first postop visit in 1 week. Only remove dressing if integrity is in question. ?No immersing wound in water; showering okay; light scrub with your hand and body soap, rinse, dab dry ?Sutures are under the skin, will dissolve; allow surgical glue to come off naturally; do not scrub the wound or apply ointments/lotions ?Call our office with any redness that streaks, excessive drainage from the wound, or wound gapping. Ice/Elevate: ?Ice as needed for swelling and discomfort (cryocuff or ice pack); elevate frequently above the heart CAITIE socks: ?Wear for 1 month, remove for 1 hour 3 times per day ?These are frustrating to take on/off, but are important for blood clot prevention for 1 month after surgery Blood Clot Prevention (DVT): ?Medication: Rivaroxaban, then transition to aspirin Driving: ?Do not drive while taking narcotic pain medication ?Anticipate 4-6 weeks no driving if operative leg is driving leg Dental: ?No elective dental work for 6 months post-op. If there is an urgent/emergent dental need, contact our office for an antibiotic prescription. Smoking/Alcohol: ?Do not smoke; do no drink alcohol especially when taking postoperative oral narcotic medication Seek Care from you Primary Care Provider if you experience the following issues in the postoperative phase and beyond: ?Bacterial infections such as: pneumonia, bacterial skin infection (cellulitis), UTI, high fever, chills unrelated to the operative body part - call your primary care physician urgently for treatment in hopes to protect your health and the metal implant. Referrals: ?PT, OT per patient preference - evaluate treat total right hip arthroplasty protocol (the training, ROM, ADLs, knee-high Caitie socks) Follow up: ?Ortho surgeon follow-up in 6 weeks; repeat radiographs AP pelvis, cross-table lateral right hip ?PA-C visit in 1 week *If there are any acute concerns regarding your surgery, please call our orthopedic clinic ([phone]) Discharge Diet: Regular Patient Instructions: Acetaminophen (By mouth), Aspirin (By mouth) (Otis Extra Strength, Otis Aspirin Children's,..., Oxycodone, Rapid Release (By mouth) (ETH-Oxydose, Oxy IR,..., Rivaroxaban (By mouth) (Xarelto, Xarelto Starter Pack), Senna (By mouth) (Sen, Senna-lax), Anterior Hip Replacement (DC) Forms: Work/Release Restrictions Follow-up: Jair Long MD [Primary Care Provider] - Kwaku Blevins PA-C [Physician Button Bradder] - 01/24/22 8:30 am (Schedule [address] Sellers at this visit with Kwaku.) Discharge Orders: Discharge Order (Routine); Ordered 01/15/22 Ordered By: Santa Guthrie
== END 2022-01-15 17:42 | disposition home or self-care (01) ==
LOC: OR 20:12 → MEDSURG 20:19
PROVIDERS: PCP Family Medicine; Visit Provider Orthopaedic Surgery Sports Medicine
PROC: (CPT 27130; principal; 2022-01-14 14:00)
DX: M16.11 Unilateral primary osteoarthritis, right hip (principal); M65.851 Other synovitis and tenosynovitis, right thigh; M96.661 Fracture of femur following insertion of orthopedic implant, joint prosthesis, or bone plate, right leg; I10 Essential (primary) hypertension; E78.5 Hyperlipidemia, unspecified; E03.9 Hypothyroidism, unspecified; E66.9 Obesity, unspecified; Z68.37 Body mass index [BMI] 37.0-37.9, adult
CPT/HCPCS: 27130; 01214; 36415; 51702; 64450; 73501; 76942; 82565; 84132; 84295; 84520; 85025; 97110; 97116; 97161; 97165; 97530; 97535; A9270; C1776; J0330; J0690; J1100; J1170; J2250; J2370; J2405; J2704; J3010; J3490; J7120

== ENCOUNTER 2022-01-20 09:45 | Emergency (ER) | payer OTHER, SELFPAY ==
[2022-01-20 09:56] VITALS: BP 178/93; PULSE 66; RESP 18; TEMP 36.6; O2SAT 94; BMI 35.9
[2022-01-20 10:30] VITALS: BP 155/89; RESP 20; O2SAT 98
--- NOTE | 2022-01-20 11:02 | CRLHL7_ITS ---
For Patients: As a result of the Cures Act, medical imaging exams and procedure reports are released immediately into your electronic medical record. You may view this report before your referring provider. If you have questions, please contact your health care provider. Indication: Postsurgical pain Technique: Two views right femur Comparison: 01/14/2022 Findings: Intact right hip replacement hardware. No fracture. Impression: No acute or significant findings. Dictated by Jair Martinez MD @ 01/20/2022 11:58:31 AM (Electronically Signed)
--- NOTE | 2022-01-20 11:02 | CRLHL7_ITS ---
For Patients: As a result of the Century Cures Act, medical imaging exams and procedure reports are released immediately into your electronic medical record. You may view this report before your referring provider. If you have questions, please contact your health care provider. Indication: Postsurgical pain Technique: AP hips and pelvis, supine Comparison: 01/14/2022 Findings: Right hip replacement hardware intact. No fracture. Tubal ligation devices. Impression: No acute or significant findings. Dictated by Jair Martinez MD @ 01/20/2022 11:57:46 AM (Electronically Signed)
[2022-01-20 13:10] VITALS: BP 150/107; PULSE 68; RESP 20; O2SAT 98
[2022-01-20] MEDS: OXYCODONE 5 MG TABLET 10 MG PO (13:13)
--- NOTE | 2022-01-20 16:41 | ED_ITS ---
HPI - Extremity Injury (Lower) General Time Seen by Provider: 10:30 Date Seen: 01/20/22 Chief Complaint: Extremity Pain/Injury, Lower Stated Complaint: Post surgical pain, R hip Time Seen by Provider: 01/20/22 10:49 Source: patient, family, RN notes reviewed and old records reviewed Mode of arrival: EMS Limitations: no limitations History of Present Illness HPI Narrative: Monika is a very pleasant 71-year-old female who is postop day 6 from a right hip replacement secondary to osteoarthritis and not trauma who comes to the emergency room via EMS for increasing right hip pain. Patient was noted to have planned surgery on the right hip on January 14. They were told that during the surgery the femur ?broke? and they had to put some mesh in place. Patient was noted to have stayed overnight and was discharged on January 15 per her request. They note that she was experiencing spasm in her right anterior thigh. On Friday01/16/2022 they contacted Orthopedics and at that time hydroxyzine was added to her medications which included oxycodone and she was noted to have improvement of her discomfort and resolution of the spasms. On Friday01/18/2022 Monika is was helping her get into bed and she was a little bit slower than his movements and she had a sudden ad duction movement of her right hip. She felt like something gave way and since that time had increased pain. They were able to treat it with oxycodone and hydroxyzine and she did well until early this morning when she woke up and describes pain 15/10. She had no numbness or tingling. She was given oxycodone 10 mg this morning. EMS was called as she was unable to leave the house and she received fentanyl. At this time she notes that she is feeling better. Patient has not had any further trauma at home. She has been using her incentive spirometer. Her daughter who is present describes a fever up to 101 on Friday01/16/2022 that resolved when she took her pain medications. She has had low-grade fevers up to 100.2 since that time only at night and only in association with significant pain. Fevers resolve once she has received pain relief. This morning she started on Celebrex. She had not taken Celebrex prior to this morning. She has not noticed any drainage from her incision although it is covered with a bandage. She has not had any vomiting. Daughter is trying to get her to eat healthy and trying to get her to avoid sugar latent foods. Pain this morning was somewhat different and that it wrapped around to patient's hip. Patient does not have pain extending past the knee. No numbness or tingling. Related Data Home Medications Medication Instructions Recorded Confirmed levothyroxine 88 mcg tablet 88 mcg PO DAILY 12/17/21 01/14/22 losartan 100 1 tab PO DAILY 12/17/21 01/14/22 mg-hydrochlorothiazide 12.5 mg tablet metoprolol succinate 50 mg 50 mg PO HS 12/31/21 01/14/22 tablet,extended release 24 hr Previous Rx's Medication Instructions Recorded amlodipine 5 mg tablet 5 mg PO QDAY #30 tabs 12/31/21 acetaminophen 500 mg capsule 500 - 1,000 mg PO Q6H PRN #100 caps 01/14/22 aspirin 81 mg tablet,delayed 81 mg PO BID #50 tabs 01/14/22 release oxycodone 5 mg tablet 2.5 - 5 mg PO Q4-6H PRN pain #42 01/14/22 tabs rivaroxaban 10 mg tablet 10 mg PO DAILY #4 tabs 01/14/22 sennosides 8.6 mg-docusate sodium 1 - 2 tab-cap PO BID PRN 01/14/22 50 mg tablet (Senna-S) constipation #60 tabs hydroxyzine pamoate 25 mg capsule 25 - 50 mg PO Q6H PRN pain #60 caps 01/16/22 (Vistaril) Allergies Allergy/AdvReac Type Severity Reaction Status Date / Time No Known Drug Allergies Allergy Verified 01/20/22 09:56 Review of Systems Const: Reports: fever (For as noted in HPI); Denies: chills or fatigue Eyes: Denies: change in vision ENMT: Denies: throat pain or throat swelling Cardio: Denies: chest pain, palpitations or shortness of breath with exertion Resp: Reports: cough (Patient denies but daughter states on Tuesday 01/16. Now resolved); Denies: shortness of breath GI: Denies: abdominal pain, nausea, vomiting, diarrhea or constipation : Reports: urinary urgency (Chronic); Denies: painful urination Musculo: Denies: back pain Neuro: Denies: headache Endo: Denies: fatigue Allergy/Immuno: Denies: throat swelling PFSH PFS Medical History (Updated 01/20/22 @ 13:17 by Marsha Gonsalves MD) History of thyroid nodule Hyperlipidemia Hypertension Hypothyroidism Obesity (BMI 30-39.9) Primary osteoarthritis of right hip (~2014) Surgical History (Updated 01/20/22 @ 13:17 by Marsha Gonsalves MD) History of D&C (2016) History of radioactive iodine thyroid ablation (2016) History of tonsillectomy (1963) History of tubal ligation (1990) S/P total right hip arthroplasty Family History (Updated 01/14/22 @ 21:53 by Ania Magana MD) Father Stroke Diabetes Breast cancer High blood pressure Mother Esophageal cancer Maternal Grandfather Coronary artery disease Social History Narrative: . 4 children. 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 Social EtOH. Full Code. Smoking Status: Never smoker Do you use any of these nicotine containing products: None Second hand tobacco smoke exposure: No How often do you have a drink containing alcohol: 2-3 times a week Alcohol type: wine How many standard drinks containing alcohol do you have on a typical day: 1 or 2 How often do you have six or more drinks on one occasion: Never AUDIT-C Alcohol total score: 3 Non-prescribed substance use: denies use Caffeine: Yes (coffee, 2-3 cups/day) Are you now , , , , never or living with a partner: Social isolation score (0-1 are the most socially isolated patients): 1 Are you using contraception or practicing any form of control: No Exam Const: Vital Signs, click to edit/add: Vital Signs - 24 hr 01/20/22 09:56 01/20/22 10:30 01/20/22 13:10 Temperature 97.9 F Pulse Rate [Pulse Oximeter] 66 68 Respiratory Rate 18 20 20 Blood Pressure [Le ft Upper Arm] 178/93 H 155/89 H 150/107 H Pulse Oximetry 94 98 98 Oxygen Delivery Me thod Room Air Documenting provider has reviewed patient's vital signs: yes Common normals: no apparent distress, oriented x3, no limitations, healthy appearing and alert General appearance: cooperative, comfortable and well [facility] Nutritional appearance: overweight HENMT: Common normals: normocephalic Head and scalp: normocephalic Eye: General eye: normal appearance of both eyes Neck & C-Spine: Common normals: full ROM Resp: Common normals: normal respiratory effort and clear to auscultation bilaterally Effort & inspection: able to speak in complete sentences Auscultation: clear to auscultation bilaterally Cardio: Common normals: regular rate and regular rhythm Rate: regular rate Rhythm: regular rhythm GI: Common normals: soft to palpation Palpation: soft Extremity: Other: Right hip shows a surgical wound that is clean dry and intact. There are some areas of ecchymosis but there is no significant drainage erythema and it does not warm to the touch. Bilateral lower extremity edema right greater than left. Compression stockings are in place. Distally sensation and motor is intact. Straight leg raise and gentle movement of the hip does not create increased pain. Neuro: Common normals: oriented x3 Sensorium/orientation: alert Psych: Common normals: mental status grossly normal Appearance: well ket Course Course Hospital Course: At this time patient describes a moment on Friday evening 01/16/2022 at which she had a sudden ad duction move of her right hip. Since that time she had been using oxycodone and Vistaril with some success. She did have activity yesterday which was slightly increased and awoke this morning with greatly increased right hip pain. We will obtain x-rays of the right hip. Patient did have fever up to 101 on Friday but since that time no significant fever and she has had resolution of those symptoms once her pain was under control. I do not think we are looking at a septic picture here but will continue to monitor in the ED emergency room. Her lungs are completely clear at this time. Reevaluation(s) Reevaluation #1: Patient is noted to continue to feel well without a need for further medication. She is afebrile x2 in the emergency room and her pulse is normal. X-rays do not appear to be markedly changed from post surgical films. Consultations Consultation #1: Had the pleasure of speaking to yasmine Pratt for Orthopedics. She was able to visualize the x-rays and at this time reassurance that the ?broken femur? was not an uncommon thing to happen during this type of surgery. Family seemed very relieved with that. Recommend follow-up with orthopedics this week. Vital Signs Vital signs: Initial Vital Signs Temperature 97.9 F 01/20/22 09:56 Temperature Source Temporal Artery Scan 01/20/22 09:56 Pulse Rate 66 01/20/22 09:56 Pulse Rhythm 01/20/22 09:56 Respiratory Rate 18 01/20/22 09:56 Blood Pressure 178/93 H 01/20/22 09:56 Blood Pressure Mean 121 01/20/22 09:56 Blood Pressure Position Supine 01/20/22 09:56 Pulse Oximetry 94 01/20/22 09:56 Oxygen Delivery Method 01/20/22 09:56 Vital Signs Temperature 97.9 F 01/20/22 09:56 Pulse Rate 66 01/20/22 09:56 Respiratory Rate 18 01/20/22 09:56 Blood Pressure 178/93 H 01/20/22 09:56 Pulse Oximetry 94 01/20/22 09:56 Oxygen Delivery Method 01/20/22 09:56 Temperature 97.9 F 01/20/22 09:56 Pulse Rate 68 01/20/22 13:10 Respiratory Rate 20 01/20/22 13:10 Blood Pressure 150/107 H 01/20/22 13:10 Pulse Oximetry 98 01/20/22 13:10 Oxygen Delivery Method 01/20/22 09:56 MDM - Extremity Injury (Lower) MDM Narrative Medical decision making narrative: 1. Right hip pain-patient did not require any further medications while in the emergency room. I suspect that the Celebrex she started this morning is going to offer her significant anti-inflammatory and pain control. Prior to her departure we did given additional oxycodone 10 mg as it had been greater than 6 hours since her last dose and she was going to be going home in a car. After x- rays were reassuring Monika did get up and walk and was noted to have improvement and stated that her pain was a 3/10. Continue daily Celebrex dosing as well as pain meds as needed. Lili [place] daughter noted that they were running low on oxycodone and I did give her additional 12 tablets through our [employer] machine. 2. Status post right hip [id number] reassuring. No evidence of infection at surgical wound site. 3. Concern about home situation-[place]ili [place] daughter is leaving to go back to [place] tomorrow and is very concerned as she feels that it has taken 2 people (herself and her father) to care for Monika. We were able to watch Monika get out of the bed on her own and ambulate on her own with the assistance of a walker to the bathroom. Will ask for delinquency prevention social worker consult to see if Monika is a candidate for home health as she is unable to get herself out of her home. She had to take EMS to the hospital. At a minimum will see if community clarifier operator can stop in and do a safety check of the house as well as medication check. Community clarifier operator visit request faxed to EMS. environmental services coordinator consult requested through [facility]. 4. Disposition-Monika is discharged into the care of her daughter. She is to return to the emergency room for onset of fever, cough, increasing redness of her surgical wound, return of fever. If her fever returns she will need blood work and further workup and she is aware of this. Notes that I realized during 1 of my subsequent visits to the room that Monika h[place] daughter was recording our conversation. Evidently she had done this before although I was not aware of it. Note that I did not give permission for this to occur her and I did ask that she not record me. Medical Records Attestation: I reviewed the patient's medical records. Imaging Data Right hip and femur: Attestation: I have reviewed the pertinent imaging results. My impression: Hardware appears to be in place. Radiologist's impression: No acute findings. Discharge Plan Discharge Clinical Impression: S/P total right hip arthroplasty, Hip pain Patient Disposition: Home w/ Parent or Adult Condition: Improved Additional Instructions: Recommend continued use of incentive spirometer. If you start experiencing increasing shortness of breath, productive cough or persistent fever over 100.4 please return to the emergency room for further evaluation. Continue Celebrex. Oxycodone as needed as well as hydroxyzine as needed for muscle spasm. Additional oxycodone available through our [employer] machine. Expect a call from delinquency prevention social worker and or visit from Community clarifier operator. We will attempt to set up home health. Return to the emergency room as needed. Prescriptions: No Action levothyroxine 88 mcg tablet 88 mcg PO DAILY losartan-hydrochlorothiazide 100-12.5 mg tablet 1 tab PO DAILY metoprolol succinate 50 mg tablet extended release 24 hr 50 mg PO HS amlodipine 5 mg tablet 5 mg PO QDAY Qty: 30 2RF aspirin 81 mg tablet,delayed release (DR/EC) 81 mg PO BID Qty: 50 0RF Rx Instructions: Medication to help prevent blood clots postoperatively; take TWICE daily. acetaminophen 500 mg capsule 500 - 1,000 mg PO Q6H MDD 4000mg PRNQty: 100 0RF oxycodone 5 mg tablet 2.5 - 5 mg PO Q4-6H MDD 6 PRN (Reason: pain) Qty: 42 0RF Rx Instructions: Take as needed for postop pain: 2.5mg mild pain, 5mg moderate-severe pain; wean as tolerated. sennosides-docusate sodium [Senna-S] 8.6-50 mg tablet 1 - 2 tab-cap PO BID PRN (Reason: constipation) Qty: 60 0RF Rx Instructions: Hold medication if experiencing loose stools. rivaroxaban 10 mg tablet 10 mg PO DAILY Qty: 4 0RF Rx Instructions: Medication for deep vein clot prevention post surgery. Complete this medication before starting Aspirin. hydroxyzine pamoate [Vistaril] 25 mg capsule 25 - 50 mg PO Q6H PRN (Reason: pain) Qty: 60 0RF Follow Up/Referrals: Jair Long MD [Primary Care Provider] - Stand Alone Forms: [facility]
== END 2022-01-20 13:38 | disposition home or self-care (01) ==
PROVIDERS: Emergency Provider Family Medicine; PCP Family Medicine
DX: M25.551 Pain in right hip (principal); Z96.642 Presence of left artificial hip joint
CPT/HCPCS: 72170; 73552; 99284; 99285; A9270

== ENCOUNTER 2023-01-06 08:33 | Outpatient (CLI) | payer OTHER, SELFPAY | END 2023-01-06 08:34 | disposition home or self-care (01) | PROVIDERS: PCP Family Medicine; Visit Provider Family Medicine | DX: I10 Essential (primary) hypertension (principal); E78.5 Hyperlipidemia, unspecified; E66.9 Obesity, unspecified; E03.9 Hypothyroidism, unspecified; Z13.9 Encounter for screening, unspecified | CPT/HCPCS: 80048; 80061; 84443; 85025 ==

== ENCOUNTER 2023-05-08 15:08 | Outpatient (CLI) | payer OTHER, SELFPAY ==
--- NOTE | 2023-05-08 15:30 | CRLHL7_ITS ---
For Patients: As a result of the Century Cures Act, medical imaging exams and procedure reports are released immediately into your electronic medical record. You may view this report before your referring provider. If you have questions, please contact your health care provider. DXA BONE MINERAL DENSITY STUDY Current height (in): 64.5. Weight (lb): 210.0. Menopause age: 49. Ethnicity: White. Reason for exam: Fracture during hip surgery. Screening. 1. Have you had a previous hip or vertebral fracture? No. 2. Have you had any fractures during your adult life which did not result from significant trauma (e.g., auto accident)? No. 3. Did either of your parents have a hip fracture? Yes. 4. Do you smoke? No. 5. Have you ever taken Glucocorticoids? No. 6. Do you have rheumatoid arthritis? No. 7. Do you have secondary osteoporosis? No. 8. Do you drink 3 or more alcoholic drinks per day? No. 9. Are you being treated for osteoporosis? No. 10. Have you ever taken any of the following medications: Actonel, Evista, Fosamax, Miacalcin, Reclast, Boniva, Forteo, HRT (i.e. estrogen/hormone therapy), Protelos, Prolia, Vitamin D, Calcium, other ??? please specify. ANSWER: Yes, Fosamax. 11. Do you have any of the following medical conditions: Anorexia or bulimia, asthma or emphysema, end stage renal disease, hyperparathyroidism, any seizure disorders, cancer, inflammatory bowel diseases, hysterectomy, other ??? please specify. ANSWER: No. 12. What was your maximum height (inches)? 65.5. 13. Do you perform weight bearing exercise regularly? No. 14. Do you regularly consume dairy products? Yes. 15. Do you drink caffeinated beverages? Yes. 16. At what age did your period start? 13. 17. Are you premenopausal? No. 18. How many full term pregnancies have you had? 4. 19. Have you ever missed your period for more than 6 months in a row (not including or menopause)? No. TECHNIQUE: Bone mineral density study was performed using the [employer]. FINDINGS: The results of the study expressed as bone mineral density (BMD) are as follows: Lumbar spine L2-L3 1.029 g/cm2. T-score: -0.3. Z-score: 2.0. Neck Left: BMD: 0.678 g/cm2. T-score: -1.5. Z-score: 0.3. Total Left: BMD: 0.867 g/cm2. T-score: -0.6. Z-score: 1.0. FRAX 10-year Fracture Risk Major Osteoporotic Fracture: 15 percent Hip Fracture: 3.7 percent Reported Risk Factors: [place] () Neck BMD = 0.678, BMI = 35.5 Jair Martinez M.D. Diagnostic Radiologist [email or web address] Transcribed: 9:59 am DW/Dictated by: Jair Martinez MD @ 05/12/2023 6:39:00 AM (Electronically Signed)
== END 2023-05-08 15:09 | disposition home or self-care (01) ==
LOC: RAD 15:08
PROVIDERS: PCP Family Medicine; Visit Provider Family Medicine
DX: Z13.820 Encounter for screening for osteoporosis (principal)
CPT/HCPCS: 77080

== ENCOUNTER 2023-09-05 13:49 | Outpatient (CLI) | payer OTHER, SELFPAY ==
--- NOTE | 2023-09-05 14:00 | MM_ITS ---
Patient: JACY ROSS Facility:?[facility] Patient ID:?[id number] Site Patient ID:?[id number]. Site :?[id number] Study:?XRay-Breast Bilateral 3D W/CAD-09/05/2023 10:38:42 AM Ordering Physician:Moises Final Report: BILATERAL SCREENING MAMMOGRAM WITH COMPUTER-AIDED DETECTION AND TOMOSYNTHESIS TECHNIQUE: CC and MLO views were obtained. These mammographic images have been obtained using full-field digital technique. These mammographic images were interpreted with the benefit of computer-aided detection. Breast tomosynthesis was used in this interpretation. COMPARISON FILM: 04/06/21, 04/05/20, 03/25/19. FINDINGS: There are scattered areas of fibroglandular density. IMPRESSION: There is no radiographic evidence for malignancy. ASSESSMENT: BI-RADS Category 1: Negative RECOMMENDATION: Routine screening mammogram in 1 year. A lay language report of this examination will be provided to the patient. BRYON PARKS M.D. Diagnostic Radiologist [email or web address] D& Transcribed: 11:[address]/Dictated by: Bryon Parks MD @ 09/09/2023 10:51:00 AM Signed by:?Bryon Parks MD @09/09/2023 12:07:10 PM (Electronic Signature)
--- NOTE | 2023-09-05 15:00 | US_ITS ---
Patient: JACY ROSS Facility:?[facility] Patient ID:?[id number] Site Patient ID:?[id number]. Site :?[id number] Study:?US-Thyroid Bilateral -09/05/2023 3:41:00 PM Ordering Physician:WINSTON ASHRAF Final Report: CLINICAL HISTORY: Hypothyroidism Comparison ultrasound from 07/25/2015 report is not available. TECHNIQUE: Borges-scale and color Doppler images were acquired of the thyroid gland. FINDINGS: The right thyroid lobe measures 4.7 x 1.5 x 1.7 centimeters the left thyroid lobe measures 5.7 x 1.9 x 1.9 centimeters numerous nodules are present larger nodules include the following. 1. Large right mid hypoechoic partially shadowing nodule measuring 3.5 x 1.5 x 1.7 centimeter with calcifications difficult to compared to the prior study given differences in measurement technique. TR 5. 2. Left superior solid cystic nodule measuring 1 x 0.8 x 1.1 centimeters decreased in size TR 3. 3.Left mid 0.8 x 0.6 x 0.9 centimeter hypoechoic nodule with coarse calcifications TR 4 decreased in size. 4. Left inferior 2.8 x 1.8 x 2.4 centimeter hypoechoic nodule with coarse calcification probably not significantly changed TR 4. IMPRESSION: Multinodular thyroid. ACR TI-RADS [email or web address] TR1: Benign No FNA TR2: Not Suspicious No FNA TR3: Mildly Suspicious FNA if greater than or equal to 2.5 cm Follow if greater than or equal to 1.5 cm TR4: Moderately Suspicious FNA if greater than or equal to 1.5 cm Follow if greater than or equal to 1 cm TR5: Highly Suspicious FNA if greater than or equal to 1 cm Follow if greater than or equal to 0.5 cm Dictated by Swati Yang MD @ 09/07/2023 9:48:10 AM Signed by:?Swati Yang MD @09/07/2023 9:48:10 AM (Electronic Signature)
== END 2023-09-05 13:50 | disposition home or self-care (01) ==
LOC: MAMMO 13:49
PROVIDERS: PCP Family Medicine; Visit Provider Family Medicine
DX: Z12.31 Encounter for screening mammogram for malignant neoplasm of breast (principal); E03.9 Hypothyroidism, unspecified
CPT/HCPCS: 76536; 77063; 77067

== ENCOUNTER 2024-01-09 11:13 | Outpatient (CLI) | payer OTHER, SELFPAY ==
--- OUTSIDE RECORDS SUMMARY | 2024-01-09 11:16 | XMS_ITS | Clinical Summary ---
Author Organization [facility] Address [address] [place] [address] Care Team Providers Care Furnace Caretaker Name Role Phone Elsewhere, Pcp Primary Care Provider Unavailabl e Source Comments Patient records contain information from all sites at [facility]. For routine questions regarding patient records, call [phone] during business hours, M-F 8:00 AM - 5:00 PM Central Time. Record requests for emergency care only can be directed to [phone] at any time.[facility] Allergies No known active allergies Medications Medication Sig Dispensed Refills Start Date End Date Status levothyroxine (SYNTHROID, LEVOTHROID) 88 mcg tablet TAKE 1 TABLET(88 MCG) BY MOUTH DAILY 60 tablet 02/05/2022 Active losartan 50 mg tablet 50 mg, hydroCHLOROthiazide 12.5 mg tablet 12.5 mg 1 tablet. 12/17/2021 Ac tive vitamins A,C,F-bmqq-tfwqks (ICAPS AREDS) 14,320 Units-226 mg-200 Units per capsule Take 1 capsule by mouth 2 (two) times a day. AREDS 2 Active amLODIPine (NORVASC) 5 mg tablet Take 5 mg by mouth daily. 02/12/2023 Active metoprolol succinate (TOPROL-XL) 100 mg 24 hr tablet Take 100 mg by mouth daily. 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 Overview (01/23/2018): Followed at [facility] with radioactive uptake 2005, aspiration 2007 Obesity Body Mass Index 30-39.9 Adult 01/23/2018 Hypertension Essential Primary 12/01/2009 Overview (10/29/2016): Benign Essential Hypertension Immunizations Name Administration Dates Next Due DTaP (Infanrix, Tripedia) 12/08/2007 H1N1 Inj 05/03/2009 HZV (ZOSTAVAX) 04/08/2014 HepB, Unspecified 03/21/1995, 1,01/13/1990,1989 Influenza (IM) Preservative Free 03/09/2012,03/09 Influenza Split 04/08/2007 Influenza high dose QV(65 ye ars or older) (PF) 03/21/2021 Influenza, Quadrivalent, Adj uvanted, Preservative Free 03/18/2020 Influenza, Seasonal, Injectable 03/17/20 13,02/16/2010,02/15/2009,2007,03/31/2006 Influenza, Unspecified 03/25/2017,2015,03/08/2015,2013 PPSV23 03/18/2020 RZV (SHINGRIX) 01/23/2018,10/31/2017 SARS-COV-2 (COVID-19) - PFIZ ER (Discontinued)(12 years or older) 03/08/2021,06/28/2020,06/07/2020 Td Preservative Free (TENIVA C, DECAVAC) 01/26/2018 Tdap 12/08/2007 influenza high dose (65 year s or older) (PF) 03/04/2018 influenza vaccine quad (FLUZONE/FLUARIX) (6 months and older)(PF) 03/25/2019 Family History Medical History Relation Name Comments Breast cancer Father Stroke Father Coronary artery disease Maternal Grandfather Hip fracture Maternal Grandmother prison resident Maternal Grandmother Esophageal cancer Mother Motor vehicle accident Other No Known Problems Paternal Grandfather Yo jennie Relation Name Status Comments Father (Age 75) Maternal Grandfather (Age 70) Maternal Grandmother (Age 88) Mother (Age 78) Other Paternal Grandfather Paternal Grandmother Social History Tobacco Use Types Packs/Day Years Used Date Smoking Tobacco: Never Smokeless Tobacco: Never Tobacco Cessation:Counseling Given: Not Answered [facility] Utilities Answer Date Recorded In the past 12 months has e electric, gas, oil, or water company threatened to shut off services in your home? No 10/01/2023 Exercise Vital Sign Answer Date Recorde d On average, how many days pe r week do you engage in moderate to strenuous exercise (like a brisk walk)? 5 days 10/01/2023 On average, how many minutes do you engage in exercise at this level? 30 min 10/01/2023 Hunger Vital Sign Answer Date Recorded Worried About Running Out of Food in the Last Ye ar Not on file 10/01/2023 Within the past 12 months, t he food you bought just didn't last and you didn't have money to get more. Never true 10/01/2023 PRAPARE - Transportation Answer Date Re corded In the past 12 months, has l ack of transportation kept you from medical appointments or from getting medications? No 09/08 In the past 12 months, has l ack of transportation kept you from meetings, work, or from getting things needed for daily living? No 10/01/2023 Nutrition Answer Date Recorded On average, how many serving s of fruits and vegetables do you eat per day (serving size is equal to 1 cup or approximately the size of a tennis ball)? 3-5 10/01/2023 Dental Answer Date Recorded Dental: Regular Dentist Yes 10/01/19 Employment Answer Date Recorded Employment status Employed and actively working without restrictions 10/01/2023 Housing Stability Answer Date Recorded What is your living situation today? I have a [facility] place to live 10/01/2023 Sex and Gender Information Value Date Recorded Sex Assigned at Not on file Gender Identity Not on file Sexual Orientation Not on file Last Filed Vital Signs Vital Sign Reading Time Taken Comments Blood Pressure 158/86 02/27/2023 2:50 PM CDT Pulse 57 02/27/2023 2:50 PM CDT Temperature 36.6 ??C (97.9 ??F) 04/09/2019 3:36 PM CD T Respiratory Rate 16 04/09/2019 3:36 PM CDT Oxygen Saturation - - Inhaled Oxygen Concentration - - Weight 95.5 kg (210 lb 8.6 oz) 04/09/2019 3:36 P M CDT Height 159 cm (5' 2.6) 04/09/2019 3:36 PM CDT Body Mass Index 37.78 04/09/2019 3:36 PM CDT Plan of Treatment Upcoming Encounters Date Type Department Care Team (Latest Contact Info) Description 01/30/2024 10:15 AM CDT Clinical Communication Virtual Review in [place], [place] [address] [place] [address] 02/02/2024 10:40 AM CDT Comprehensive Visit Department of Dermatology in [place], [place] [address] [place] [phone] Yuliya Gallo M.B.B.S. [address] [place] [phone] 03/25/2024 10:30 AM CDT Clinical Communication Virtual Review in [place], [place] [address] [place] [address] 03/26/2024 11:20 AM CDT Office Visit Department of Dermatology in [place], [place] [address] [place] [phone] Tosha Carolina P.A.-C., M.S. [address] [place] [phone] Health Maintenance Due Date Last Done Comments Bone Density Scan (Osteoporo sis Screen) 1950 CT Colonography 1950 Cologuard 1950 Colonoscopy 1950 Hepatitis C Screening 1950 Office Visit for Blood Press ure Check / Re-check 1951 Lipid (Cholesterol) Screening 03/31/2020, 03/25/2018, 12/17/2016, Additional history exists Colorectal Cancer Screening 04/22/2020 FIT 04/22/2020 04/22/2019 Thyroid Stimulating Hormone (TSH) test for thyroid function 06/30/2020 06/30/2019, 03/31/2019, 03/25/2018, Additional history exists Pneumococcal vaccine (65+ ye ars) (2 of 2 - PCV) 03/18/2021 03/18/2020 Mammogram 04/06/2022 04/06/2021, 03/10, 03/25/2019, Additional history exists COVID-19 Vaccine (2022-07 4 season) 2023 11/01/2022, 12/25/2021, 03/08/2021, Additional history exists Depression Screening (Annual PHQ-2) 06/09/2023 Fall Risk Screen (Annual) 06/09/2023 Creatinine Level (Kidney Fun ction Test) 01/18/2024 01/17/2023, 03/31/2019, 03/25/2018, Additional history exists Potassium Level 01/18/2024 01/17/2023, 03/10, 03/25/2018, Additional history exists Sodium Level 01/18/2024 01/17/2023, 03/10, 03/25/2018, Additional history exists Influenza Vaccine (#1) 2024 , 04/14/2022, 03/21/2021, Additional history exists Fasting Glucose for Diabetes Screening 01/17/2026 01/17/2023, 03/31/2019, 03/25/2018, Additional history exists DTaP,Tdap,and Td Vaccines (4 - Td or Tdap) 01/27/2028 01/26/2018, 12/08/2007, 12/08/2007 Hepatitis B Vaccines Completed 03/21/1995, 06/24/1990, 01/13/1990, Additional history exists Zoster Vaccines Completed 01/23/2018, 10/08, 04/08/2014 Procedures Procedure Name Priority Date/Time Associated Diagnosis Comments BI BREAST SCREENING BILATERAL RAD - Routine (most inpatients and all outpatients) 04/06/2021 4:11 PM CDT Screening Mammogram Breast Cancer THYROID FUNCTION CASCADE, S Routine 06/30/2019 12:31 PM BEACH EXPERT Nodule Thyroid LIPID PANEL, S Routine 03/31/2019 8:18 AM CDT Hyperlipidemia Mixed BASIC METABOLIC PANEL, S/P Routine 03/31/2019 8:18 AM CDT Hypertension Essential Primary from Last 3 Months or Most Recently Relevant to Health Maintenance Results * BI Breast Screening Bilateral (04/06/2021 4:11 PM CDT) Anatomical Region Laterality Modality Breast, Breast Imaging RST L OS, Breast Imaging ARZ LOS, Breast Imaging FLA LOS Bilateral Mammography 04/06/2021 4:15 PM CDT Impressions 04/06/2021 4:15 PM CDT Negative. RECOMMENDATION: ??Annual Screening Mammogram ASSESSMENT: ??BI-RADS: 1: Negative. Narrative 04/06/2021 4:15 PM CDT EXAM: ??BI BREAST SCREENING BILATERAL Current study was evaluated with a Computer Aided Detection (CAD) system. INDICATION: ??Screening mammogram. COMPARISON: ??Prior exam(s) were available and reviewed for comparison. DENSITY: ??b. There are scattered areas of fibroglandular density. FINDINGS: ??No mammographic findings of malignancy. Procedure Note Roni Jones M.D. - 04/06/2021 EXAM: BI BREAST SCREENING BILATERAL Current study was evaluated with a Computer Aided Detection (CAD) system. INDICATION: Screening mammogram. COMPARISON: Prior exam(s) were available and reviewed for comparison. DENSITY: b. There are scattered areas of fibroglandular density. FINDINGS: No mammographic findings of malignancy. IMPRESSION: Negative. RECOMMENDATION: Annual Screening Mammogram ASSESSMENT: BI-RADS: 1: Negative. Hieu Jaquez APRN BI PROCEDU RES * Thyroid Function [place] (06/30/2019 12:31 PM BEACH EXPERT) TSH, Sensitive 1.9 0.3 - 4.2 mIU/L 06/30/2019 4:08 PM BEACH EXPERT OWAT Comment: Biotin has been identified by the oil prospecting observer as a potential interfering substance. ??Higher concentrations of biotin may be found in multivitamins, hair/nail supplements, and workout supplements. ??If the result does not match clinical observations, repeat testing after patient refrains from the use of supplements for at least 12 hours. Blood (Blood, Venous) 06/30/2019 12:31 PM BEACH EXPERT 06/30/2019 3:46 PM BEACH EXPERT Monika Faustin APRN, C.N.P. LAB BLOOD ADD- ON [facility] [address] [place] [address], [facility] OWAT [facility] [place] [address] [place] [address] * (ABNORMAL) Lipid Panel (03/31/2019 8:18 AM CDT) [facility] Cholesterol, Total 213(H) mg/dL 2018 11:37 AM CDT OWAT Comment: ----REFERENCE VALUE---- Desirable: < 200 Borderline high: 200 - 239 High: > or = 240 Triglycerides 110 mg/dL 03/31/2019 11:37 AM CDT OWAT Comment: ----REFERENCE VALUE---- Normal: <150 Borderline high: 150-199 High: 200-499 Very high: > or =500 Cholesterol, HDL, S 84 >=50 mg/dL 03/31/2019 11:37 AM CDT OWAT Calculated LDL 107 mg/dL 03/31/2019 11:37 AM CDT OWAT Comment: ----REFERENCE VALUE---- Desirable: <100 Above Desirable: 100-129 Borderline high: 130-159 High: 160-189 Very high: > or =190 Cholesterol, Non-HDL, Calculated 129 mg/dL 03/31/2019 11:37 AM CDT OWAT Comment: ----REFERENCE VALUE---- Desirable: <130 Above Desirable: 130-159 Borderline high: 160-189 High: 190-219 Very high: > or =220 Blood (Blood, Venous) 03/31/2019 8:18 AM CDT 03/31/2019 10:27 AM CDT Elke Mak M.D. LAB BLOOD ADD-ON Performing Organization Address City/[facility]/ZIP Co de Phone Number [facility] [address] [place] [address], [facility] [place] [place] [address] * (ABNORMAL) BMP (Basic Metabolic Panel) (03/31/2019 8:18 AM CDT) Potassium, S 4.3 3.6 - 5.2 mmol/L 03/31/2019 11:37 AM CDT OWAT Sodium, S 136 135 - 145 mmol/L 03/31/2019 11:37 AM CDT OWAT Chloride, S 95(L) 98 - 107 mmol/L 03/31/2019 11:37 AM CDT OWAT Bicarbonate, S 30(H) 22 - 29 mmol/L 03/31/2019 11:37 AM CDT OWAT Anion Gap 11 7 - 15 03/31/2019 11:37 AM CDT OWAT BUN (Blood Urea Nitrogen), S 18 6 - 21 mg/dL 03/31/2019 11:37 AM CDT OWAT Creatinine 1.01 0.59 - 1.04 mg/dL 03/31/2019 11:37 AM CDT OWAT eGFR-Non Black/ 58(L) >=60 mL/min/BSA 03/31/2019 11:37 AM CDT OWAT Comment: ----ADDITIONAL INFORMATION---- Estimated GFR calculated using the 2009 CKD_EPI creatinine equation. eGFR-Black/Afric an Cambodian 67 >=60 mL/min/BSA 03/31/2019 11:37 AM CDT OWAT Comment: ----ADDITIONAL INFORMATION---- Estimated GFR calculated using the 2009 CKD_EPI creatinine equation. Calcium, Total, S 9.7 8.8 - 10.2 mg/dL 03/31/2019 11:37 AM CDT OWAT Glucose, S 105 70 - 140 mg/dL 03/31/2019 11:37 AM CDT OWAT Blood (Blood, Venous) 03/31/2019 8:18 AM CDT 03/31/2019 10:27 AM CDT Elke Mak M.D. LAB BLOOD ADD-ON [facility] [address] [place] [address], [place] OW[facility] [place] [address] [place] [address] from Last 3 Months or Most Recently Relevant to Health Maintenance Care Teams Furnace Caretaker Relationship Specialty Start Date End Date Elsewhere, Pcp PCP - General Family Medicine 04/12/21
--- OUTSIDE RECORDS SUMMARY | 2024-01-09 11:17 | XMS_ITS | Encounter Summary ---
Author Organization [facility] Address [address] [place] [address] Care Team Providers Care Litigator Name Role Phone Elsewhere, Pcp Primary Care Provider Unavailabl e Encounter Details Date Type Department Care Team (Late st Contact Info) Description 10/02/2023 3:15 PM CDT Silent Schedule Department of Ophthalmology in [place], [place] [address] [phone] Chong Ontiveros Jr., M.D. [address], [place] [address] Social History Tobacco Use Types Packs/Day Years Used Date Smoking Tobacco: Never Smokeless Tobacco: Never [facility] Utilities Answer Date Recorded In the past 12 months has th e electric, gas, oil, or water company [...] your living situation today? I have a [facility] place to live 10/01/2023 Sex and Gender Information Value Date Recorded Sex Assigned at Not on file Gender Identity Not on file Sexual Orientation Not on file documented as of this encounter Plan of Treatment Upcoming Encounters Date Type Department Care Team (Latest Contact Info) Description 01/30/2024 10:15 AM CDT Clinical Communication Virtual Review in [address] [phone] 02/02/2024 10:40 AM CDT Comprehensive Visit Department of Dermatology in [place], [place] [address] [place] [phone] Yuliya Gallo M.B.B.S. [address] [place] [phone] 03/25/2024 10:30 AM CDT Clinical Communication Virtual Review in [address] [phone] 03/26/2024 11:20 AM CDT Office Visit Department of Dermatology in [place], [place] [address] [place] [phone] Tosha Carolina P.A.-C., M.S. [address] [place] [phone] documented as of this encounter Procedures Procedure Name Priority Date/Time Associated Diagnosis Comments OPTICAL COHERENCE TOMOGRAPHY - MACULA/RETINA - OU - BOTH EYES Routine 10/02/2023 4:25 PM CDT Vitreomacular Adhesion Left Eye documented in this encounter Results * Optical Coherence Tomography - Macula/Retina - OU - Both Eyes (10/02/2023 4:25 PM CDT) Narrative OPHTHALMOLOGY IMAGING EXAM - 10/02/2023 4:25 PM CDT NO change in epiretinal membrane left eye. Right eye WNL Chong Ontiveros Jr., M.D. OPHTH TOMOGRAPH Y OPHTHALMOLOGY IMAGING EXAM documented in this encounter Visit Diagnoses Not on filedocumented in this encounter Care Teams Litigator Relationship Specialty Start Date End Date Elsewhere, Pcp PCP - General Family Medicine 04/12/21 documented as of this encounter
--- OUTSIDE RECORDS SUMMARY | 2024-01-09 11:17 | XMS_ITS ---
Author Organization [facility] Address [address] [place] [address] Care Team Providers Care Manager Psychiatry Name Role Phone Unavailable Unavailable Unavailable Surgery Details Not on file Complications Check Surgery Details section. Procedure Estimated Blood Loss Check Surgery Details section. Procedure Findings Check Surgery Details section. Procedure Specimens Taken Check Surgery Details section.
--- OUTSIDE RECORDS SUMMARY | 2024-01-09 11:17 | XMS_ITS | Clinical Summary ---
Author Organization [facility] Address [place], [place] [address] Care Team Providers Care School Health Aide Name Role Phone Elke Mak MD Primary Care Provider [phone] Allergies No known active allergies Medications Medication Sig Dispensed Refills Start Date End Date Status ANTIOX#10/OM3/DHA/EPA/ LUT/ZEAX (I-CAPS ORAL) Take by mouth. Active losartan (COZAAR) 50 mg tablet Take 100 mg by mouth once daily. Active hydrochlorothiazide (HCTZ) 25 mg tablet Take 25 mg by mouth once daily. Active levothyroxine (SYNTHROID) 88 mcg tablet 07/25/2021 Active celecoxib (CELEBREX) 200 mg capsuleIndications:Ximena ricarda osteoarthritis of right hip Take 1 Capsule (200 mg) by mouth 2 times daily with meals. 60 Capsule 2 08/09/2021 Active Active Problems No known active problems Social History Tobacco Use Types Packs/Day Years Used Date Smoking Tobacco: Never Smokeless Tobacco: Never Tobacco Cessation:Counseling Given: Yes Alcohol Use Standard Drinks/Week Comments No 0 (1 standard drink = 0.6 oz pur e alcohol) socially Social Connections Answer Date Recorded Frequency of Communication with Friends and Fami ly Not on file 08/09/2021 Sex and Gender Information Value Date Recorded Sex Assigned at Not on file Gender Identity Not on file Sexual Orientation Not on file Obstetrics History Last Filed Vital Signs Vital Sign Reading Time Taken Comments Blood Pressure 188/86 01/17/2023 5:58 PM CDT Pulse 56 01/17/2023 5:58 PM CDT Temperature 36.9 ??C (98.4 ??F) 01/17/2023 4:28 PM CD T Respiratory Rate 16 01/17/2023 4:28 PM CDT Oxygen Saturation 98% 01/17/2023 5:58 PM CDT Inhaled Oxygen Concentration - - Weight 99.3 kg (219 lb) 01/17/2023 4:27 PM CDT Height 165.1 cm (5' 5) 01/17/2023 4:27 PM CDT Body Mass Index 36.44 01/17/2023 4:27 PM CDT Plan of Treatment Health Maintenance Due Date Last Done Comments Tdap 12/28/1962 Depression screening for age 12+ 1963 BMI (ht and wt on same day) for age 18+ 12/28/1969 Hepatitis C screening for ag e 18-79 12/28/1969 Tetanus booster 1971 Colonoscopy through age 75 12/28/1996 Lipids for age 45-75 12/28/1996 Mammogram for age 45-75 12/28/1996 Zoster (shingles) series for age 50+ (1 of 2) 12/28/2001 DEXA/DXA scan for age 65+ 12/28/2016 Pneumococcal series for age 65+ (1 of 1 - PCV) 12/28/2016 COVID-19 vaccine series ( season) 2023 11/01/2022, 12/25/2021, 03/08/2021, Additional history exists Influenza for age 65+ 02/08/2024 Advance Directives * Full Code (Latest Code Status on File) Date Activated Date Inactivated Comments 08/10/2015 11:52 AM 08/10/2015 4:38 PM Care Teams School Health Aide Relationship Specialty Start Date End Date Elke Mak MD [address] [place] [address] PCP - General Family Practice 01/17/23
--- OUTSIDE RECORDS SUMMARY | 2024-01-09 11:17 | XMS_ITS | Encounter Summary ---
Author Organization [facility] Address [address] [place] [address] Care Team Providers Care Trades Helper Name Role Phone Elsewhere, Pcp Primary Care Provider Unavailabl e Encounter Details Date Type Department Care Team (Late st Contact Info) Description 08/22/2014 Historical Ophthalmology [facility] Chong Ontiveros Jr., M.D. [address] [place] [address] Social History Tobacco Use Types Packs/Day Years Used Date Smoking Tobacco: Never Assessed Sex and Gender Information Value Date Recorded Sex Assigned at Not on file Gender Identity Not on file Sexual Orientation Not on file documented as of this encounter Progress Notes * Chong Ontiveros M.D. - 08/22/2014 3:58 PM CDT Eye General CHIEF COMPLAINT glasses rx recheck HISTORY OF PRESENT ILLNESS Got new glasses in May, they give her headaches and she can't see clearly - doesn't specify if worse distance or near. Feels like I'm in a funhouse. Can't find a good spot in the lenses. Hasbeen to optical several times to have checked. IMPRESSION / REPORT / PLAN A) Rx change \ P) RTO fall 2014 CDM Reports - EYEGEN Id: [id number] Status: Fnl documented in this encounter Plan of Treatment Upcoming Encounters Date Type Department Care Team (Latest Contact Info) Description 01/30/2024 10:15 AM CDT Clinical Communication Virtual Review in [place], [place] 200 [place] [address] 02/02/2024 10:40 AM CDT Comprehensive Visit Department of Dermatology in [place], [place] [address] [place] [phone] Yuliya Gallo M.B.B.S. [address] [place] [phone] 03/25/2024 10:30 AM CDT Clinical Communication Virtual Review in [place], [place] [address] [place] [address] 03/26/2024 11:20 AM CDT Office Visit Department of Dermatology in [place], [place] [address] [place] [phone] Tosha Carolina P.A.-C., M.S. 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
--- OUTSIDE RECORDS SUMMARY | 2024-01-09 11:17 | XMS_ITS | Encounter Summary ---
Author Organization [facility] Address [address] [place] [address] Care Team Providers Care Annealing Torch Operator Name Role Phone Elsewhere, Pcp Primary Care Provider Unavailabl e Reason for Visit * Outpatient (Routine) - Closed Specialty Diagnoses / Procedures Referred By Deborah greenwood Referred To Contact Ophthalmology Chong Ontiveros Jr., M.D. [address] [phone] [facility] Region Referral ID Status Reason Start Date Expiration Date Visits Re quested Visits Authorized [id number] Closed 12/26/2022 12/25/2025 1 1 Encounter Details Date Type Department Care Team (Latest Contact Info) Description 03/31/2023 9:00 AM CDT Ancillary Procedure Department of Ophthalmology in [place], [place] [address] [phone] Chong Ontiveros Jr., M.D. [address] [address] Vitreomacular Adhesion Left Eye Social History Tobacco Use Types Packs/Day Years Used Date Smoking Tobacco: Never Smokeless Tobacco: Never [facility] Utilities Answer Date Recorded In the past [...] your living situation today? I have a [facility] place to live 10/01/2023 Sex and Gender Information Value Date Recorded Sex Assigned at Not on file Gender Identity Not on file Sexual Orientation Not on file documented as of this encounter Plan of Treatment Upcoming Encounters Date Type Department Care Team (Latest Contact Info) Description 01/30/2024 10:15 AM CDT Clinical Communication Virtual Review in [place], [place] [address] [place] [address] 02/02/2024 10:40 AM CDT Comprehensive Visit Department of Dermatology in [place], [place] [address] [place] [address] Yuliya Gallo M.B.B.S. [address] [place] [phone] 03/25/2024 10:30 AM CDT Clinical Communication Virtual Review in [place], [place] [address] [place] [address] 03/26/2024 11:20 AM CDT Office Visit Department of Dermatology in [place], [place] [address] [place] [address] Tosha Carolina P.A.-C., M.S. [address] [place] [address] documented as of this encounter Procedures Procedure Name Priority Date/Time Associated Diagnosis Comments OPTICAL COHERENCE TOMOGRAPHY - MACULA/RETINA - OU - BOTH EYES Routine 03/31/2023 9:00 AM CDT Vitreomacular Adhesion Left Eye documented in this encounter Results * Optical Coherence Tomography - Macula/Retina - OU - Both Eyes (03/31/2023 9:00 AM CDT) Narrative OPHTHALMOLOGY IMAGING EXAM - 10/01/2023 1:26 PM CDT Right Eye Reliability was good. OCT device used was Spectralis . Left Eye Reliability was good. OCT device used was Spectralis . Notes Epiretinal membrane, left eye, with retinal thickening. Chong Ontiveros Jr., M.D. OPHTH TOMOGRAPH Y Performing Organization Address City/State/[facility] Co de Phone Number OPHTHALMOLOGY IMAGING EXAM documented in this encounter Visit Diagnoses Diagnosis Vitreomacular Adhesion Left Eye documented in this encounter Care Teams Annealing Torch Operator Relationship Specialty Start Date End Date Elsewhere, Pcp PCP - General Family Medicine 04/12/21 documented as of this encounter
--- OUTSIDE RECORDS SUMMARY | 2024-01-09 11:17 | XMS_ITS | Referral Summary ---
Author Organization [facility] Address [address] [place] [address] Care Team Providers Care Bicycle Subassembler Name Role Phone Elsewhere, Pcp Primary Care Provider Unavailabl e Source Comments Patient records contain information from all sites at [facility]. For routine questions regarding patient records, call [phone] during business hours, M-F 8:00 AM - 5:00 PM Central Time. Record requests for emergency care only can be directed to [phone] at any time.[facility] Allergies No known active allergies Medications Medication Sig Dispensed Refills Start Date End Date Status levothyroxine (SYNTHROID, LEVOTHROID) 88 mcg tablet TAKE 1 TABLET(88 MCG) BY MOUTH DAILY 60 tablet 02/05/2022 Active losartan 50 mg tablet 50 mg, hydroCHLOROthiazide 12.5 mg tablet 12.5 mg 1 tablet. 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): Followed at [facility] with radioactive uptake 2005, aspiration 2007 [...] quad (FLUZONE/FLUARIX) (6 months and older)(PF) 03/25/2019 Social History Tobacco Use Types Packs/Day Years Used Date Smoking Tobacco: Never Smokeless Tobacco: Never Tobacco Cessation:Counseling Given: Not Answered [facility] Utilities Answer Date Recorded In the past 12 months has [employer], or water [email or web address] threatened to shut off services in your [...] AM CDT Clinical Communication Virtual Review in [place], [place] [address] [place] [address] 02/02/2024 10:40 AM CDT Comprehensive Visit Department of Dermatology in [place], [place] [address] [place] [phone] Yuliya Gallo M.B.B.S. [address] [place] [phone] 03/25/2024 10:30 AM CDT Clinical Communication Virtual Review in [place], [place] [address] [place] [address] 03/26/2024 11:20 AM CDT Office Visit Department of Dermatology in [place], [place] [address] [place] [phone] Tosha Carolina P.A.-C., M.S. [address] [place] [phone] Procedures Procedure Name Priority Date/Time Associated Diagnosis Comments BI BREAST SCREENING BILATERAL RAD - Routine (most inpatients and all outpatients) 04/06/2021 4:11 PM CDT Screening Mammogram Breast Cancer THYROID FUNCTION CASCADE, S Routine 06/30/2019 12:31 PM VISION CARE ASSOCIATE Nodule Thyroid LIPID PANEL, S Routine 03/31/2019 [...] Annual Screening Mammogram ASSESSMENT: BI-RADS: 1: Negative. Joe Jaquez APRN.N.P. IMG BI PROCEDU RES * Thyroid Function Van (06/30/2019 12:31 PM VISION CARE ASSOCIATE) TSH, Sensitive 1.9 0.3 - 4.2 mIU/L 06/30/2019 4:08 PM VISION CARE ASSOCIATE OWAT Comment: Biotin has been identified by the iron worker foreman as a potential interfering substance. ??Higher concentrations of biotin may be found in multivitamins, hair/nail supplements, and workout supplements. ??If the result does not match clinical observations, repeat testing after patient refrains from the use of supplements for at least 12 hours. Blood (Blood, Venous) 06/30/2019 12:31 PM VISION CARE ASSOCIATE 06/30/2019 3:46 PM VISION CARE ASSOCIATE Monika Faustin APRN, Joe.N.P. LAB BLOOD ADD- ON [facility] [address] [place] [address], [place] OWAT [facility] [place] [address] [place] [address] * (ABNORMAL) Lipid Panel (03/31/2019 8:18 AM CDT) Cholesterol, Total 213(H) mg/dL 2018 11:37 AM [...] CDT Elke Mak M.D. LAB BLOOD ADD-ON [facility] [address] [address], [facility] OWAT [facility] [place] [address] [address] * (ABNORMAL) BMP (Basic Metabolic Panel) (03/31/2019 [...] the 2009 CKD_EPI creatinine equation. eGFR-Black/Afric an Thai 67 >=60 mL/min/BSA 03/31/2019 11:37 AM CDT OWAT Comment: ----ADDITIONAL INFORMATION---- Estimated GFR calculated using the 2009 CKD_EPI creatinine equation. Calcium, Total, S 9.7 8.8 - 10.2 mg/dL 03/31/2019 11:37 AM CDT OWAT Glucose, S 105 70 - 140 mg/dL 03/31/2019 11:37 AM CDT OWAT Blood (Blood, Venous) 03/31/2019 8:18 AM CDT 03/31/2019 10:27 AM CDT Elke Mak M.D. LAB BLOOD [facility] [address] [place] [address], [facility] OWAT [facility] [place] [address] [place] [address] from Last 3 Months or Most Recently Relevant to Health Maintenance Care Teams Bicycle Subassembler Relationship Specialty Start Date End Date Elsewhere, Pcp PCP - General Family Medicine 04/12/21
--- OUTSIDE RECORDS SUMMARY | 2024-01-09 11:17 | XMS_ITS | Encounter Summary ---
Author Organization [facility] Address [address] [place] [address] Care Team Providers Care Parts Technician Name Role Phone Elsewhere, Pcp Primary Care Provider Unavailabl e Reason for Referral * Outpatient (Routine) - Authorized Specialty Diagnoses / Procedures Referred By Deborah greenwood Referred To Contact Ophthalmology Chong Ontiveros Jr., M.D. [address] [place] [address] [facility] Region Referral ID Status Reason Start Date Expiration Date V isits Requested Visits Authorized [id number] Authorized 10/02/2023 04/02/2025 1 1 Reason for Visit * Reason Comments Retina Follow Up * Outpatient (Routine) - Closed Specialty Diagnoses / Procedures Referred By Deborah greenwood Referred To Contact Ophthalmology Chong Ontiveros Jr., M.D. [address], [place] [address] [facility] Region Referral ID Status Reason Start Date Expiration Date Visits Re quested Visits Authorized [id number] Closed 04/01/2023 03/31/2026 1 1 Encounter Details Date Type Department Care Team (Latest Contact Info) Description 10/02/2023 4:00 PM CDT Office Visit Department of Ophthalmology in [place], [place] [address], [place] [address] Chong Ontiveros Jr., M.D. [address] [place] [phone] Vitreomacular Adhesion Left Eye (Primary Dx); Membrane Macula Epiretinal Left Social History Tobacco Use Types Packs/Day Years Used Date Smoking Tobacco: Never Smokeless Tobacco: Never Tobacco Cessation:Counseling Given: Not Answered [facility] Utilities Answer Date Recorded In the past 12 months has th e [employer], gas, oil, or water [facility] threatened to shut off services in your [...] your living situation today? I have a [facility] place to live 10/01/2023 Sex and Gender Information Value Date Recorded Sex Assigned at Not on file Gender Identity Not on file Sexual Orientation Not on file documented as of this encounter Progress Notes * Chnog Ontiveros Jr., M.D. - 10/02/2023 4:00 PM CDT Monika Faustin was seen today for Retina Follow Up #1 Vitreomacular Adhesion Left Eye #2 Membrane Macula Epiretinal Left #1 Stable OCT stable RTO 6 months Will discuss with Dr. Jeter. Not interest in membrane peel at this time. documented in this encounter Plan of Treatment Upcoming Encounters Date Type Department Care Team (Latest Contact Info) Description 01/30/2024 10:15 AM CDT Clinical Communication Virtual Review in [address] [phone] 02/02/2024 10:40 AM CDT Comprehensive Visit Department of Dermatology in [address] [phone] Yuliya Gallo M.B.B.S. [address] [place] [phone] 03/25/2024 10:30 AM CDT Clinical Communication Virtual Review in [address] [phone] 03/26/2024 11:20 AM CDT Office Visit Department of Dermatology in [address] [address] Tosha Carolina P.A.-C., M.S. [address] [place] [phone] Scheduled Referrals Name Type Priority Associated Diagnoses Order Schedule Ophthalmology office visit (clinic) Outpatient Referral Routine Expected: 10/01/2024, Expires: 12/31/2024 documented as of this encounter Procedures Procedure [...] encounter Visit Diagnoses Diagnosis Vitreomacular Adhesion Left Eye- Primary Membrane Macula Epiretinal Left documented in this encounter Care Teams Parts Technician Relationship Specialty Start Date End Date Elsewhere, Pcp PCP - General Family Medicine 04/12/21 documented as of this encounter
== END 2024-01-09 11:14 | disposition home or self-care (01) ==
PROVIDERS: PCP Family Medicine; Visit Provider Family Medicine
DX: E78.2 Mixed hyperlipidemia (principal); I10 Essential (primary) hypertension; E66.9 Obesity, unspecified; E03.9 Hypothyroidism, unspecified; R53.83 Other fatigue
CPT/HCPCS: 80048; 80061; 84443; 85025

== ENCOUNTER 2024-01-30 09:47 | Outpatient (RCR) | payer OTHER, SELFPAY ==
--- NOTE | 2024-01-27 14:58 | URNOTE ---
Request received for authorization for [employer] ([id number]). Prior authorization is not required as services are based on medical necessity, per Rep. Chirag Lindsey. Ref#[id number] as pt carries [employer].
[2024-01-30 10:01] VITALS: BP 156/91; PULSE 62; RESP 18; TEMP 36.5; O2SAT 94
[2024-01-30] MEDS: SODIUM CHLORIDE 0.9 % (FLUSH) 10 ML SYRINGE IVF (10:30)
[2024-01-30] MEDS: 0.9 % SODIUM CHLORIDE 250 ml IV (10:30)
== END 2024-07-28 23:59 | disposition home or self-care (01) ==
LOC: CCIC 09:47
PROVIDERS: PCP Family Medicine; Visit Provider Clinical Nurse Specialist
DX: M81.0 Age-related osteoporosis without current pathological fracture (principal)
CPT/HCPCS: 96374; J3489; J7050

== ENCOUNTER 2025-01-11 13:41 | Outpatient (CLI) | payer MEDICARE, SELFPAY ==
--- NOTE | 2025-01-11 13:40 | CRLHL7_ITS ---
For Patients: As a result of the Century Cures Act, medical imaging exams and procedure reports are released immediately into your electronic medical record. You may view this report before your referring provider. If you have questions, please contact your health care provider. INDICATION: BILATERAL SCREENING MAMMOGRAM ASYMPTOMATIC 74 Y/O FEMALE COMPARISON: 09/05/2023, 04/06/2021, 04/05/2020 TECHNIQUE: Digital mammogram in CC and MLO projections including computer-aided detection (CAD) and tomosynthesis. BREAST COMPOSITION: There are scattered areas of fibroglandular density. FINDINGS: No suspicious findings. ASSESSMENT: BI-RADS 1 Negative RECOMMENDATION: Annual screening mammogram. A lay language report of this examination will be provided to the patient. Dictated by: Jair Martinez MD @ 01/12/2025 10:45:29 (Electronically Signed)
== END 2025-01-11 13:42 | disposition home or self-care (01) ==
LOC: MAMMO 13:43
PROVIDERS: PCP Family Medicine; Visit Provider Family Medicine
DX: Z12.31 Encounter for screening mammogram for malignant neoplasm of breast (principal)
CPT/HCPCS: 77063; 77067

== ENCOUNTER 2025-01-12 08:40 | Outpatient (CLI) | payer MEDICARE, OTHER, SELFPAY | END 2025-01-12 08:41 | disposition home or self-care (01) | PROVIDERS: PCP Family Medicine; Visit Provider Family Medicine | DX: M81.0 Age-related osteoporosis without current pathological fracture (principal); I10 Essential (primary) hypertension; E03.9 Hypothyroidism, unspecified; E66.9 Obesity, unspecified; E78.2 Mixed hyperlipidemia | CPT/HCPCS: 80048; 80061; 84443; 84460 ==